=== PATIENT | male | born 1960 | race Asian ===

== ENCOUNTER 2016-12-03 07:01 | Emergency (ER) | payer OTHER ==
[~2016-12-03] VITALS: Wt 65.0 kg
--- NOTE | 2016-12-03 07:33 | ERA ---
ER Documentation Chief Complaint Date/Time DATE: 12/03/16 TIME: 07:28 Chief Complaint sent by pmd for abdominal distention and pain for the past few months. HPI 56-year-old [place] male with a history of hypertension and colon CA being treated with chemotherapy referred to the ED by Dr. Garcia for evaluation of increasing abdominal distention. He has mild, generalized, pressure and crampy- like, nonradiating pain which has been increasing since his diagnosis 06/2016. No relieving or exacerbating factors. Nausea with occasional, postprandial vomiting. Denies hematemesis or hematochezia. No chest pain or palpitations. Denies shortness of breath but does admit to mild exertional dyspnea and orthopnea. Increasing lower extremity swelling but no calf pain. Chronic left shoulder/scapular pain which is worsening over the last several weeks. No history of trauma. Denies headache or neck pain. No visual changes, focal weakness or numbness. Denies dysuria, polyuria or flank pain. No fevers or chills. ROS All systems reviewed and are negative except as per history of present illness. Medications Home Meds Reported Medications Losartan Potassium* (Losartan Potassium*) 50 Mg Tablet, 50 MG PO DAILY, TAB 12/03/16 Tamsulosin Hcl* (Tamsulosin Hcl*) 0.4 Mg Cap.er.24h, 0.4 MG PO HS, CAP 12/03/16 Atenolol* (Atenolol*) 50 Mg Tablet, 50 MG PO QAM, #30 TAB 12/03/16 Amlodipine Besylate* (Amlodipine Besylate*) 10 Mg Tablet, 10 MG PO DAILY, #30 TAB 12/03/16 Morphine Sulfate* (Ms Contin*) 60 Mg Tablet.sa, 60 MG PO Q12, TAB.SA 12/03/16 Oxycodone Hcl* (IR) (Oxycodone Hcl*) 15 Mg Tablet, 15 MG PO Q4H Y for PAIN, TAB 12/03/16 Warfarin Sodium* (Coumadin*) 1 Mg Tablet, 1 MG PO DAILY, TAB 12/03/16 Furosemide* (Furosemide*) 20 Mg Tablet, 10 MG PO QAM, #60 TAB 12/03/16 Allergies Allergies: Coded Allergies: No Known Allergy (Unverified , 12/03/16) PMhx/Soc Reviewed in chart. As per HPI. History of Surgery: No Hx Neurological Disorder: No Hx Respiratory Disorders: No Hx Cardiac Disorders: Yes (Hypertension) Hx Psychiatric Problems: No Hx Miscellaneous Medical Probl: Yes (Colon cancer) Hx Alcohol Use: No Hx Substance Use: No Hx Tobacco Use: No FmHx No diabetes, cancer or coronary artery disease Physical Exam Vitals Vital Signs Date Time Temp Pulse Resp B/P Pulse Ox O2 Delivery O2 Flow Rate FiO2 12/03/16 13:39 66 18 109/73 100 Room Air 12/03/16 10:33 83 18 120/81 99 Room Air 12/03/16 07:04 99.6 102 22 123/82 100 Physical Exam Const: Alert, ill-appearing but in mild distress due to pain. Head: Atraumatic Eyes: Normal Conjunctiva. Sclerae anicteric. Pupils equal reactive to light. ENT: Normal External Ears, Nose and Mouth. Neck: Full range of motion. Nontender. Resp: Breath sounds are equal but diminished at the bases. Otherwise clear to auscultation bilaterally. No rales rhonchi or wheezes. Cardio: Regular rate and rhythm, no murmurs Abd: Soft, distended, tense. Positive fluid wave. Mild generalized tenderness but no rebound or guarding. Skin: No petechiae or rashes Back: No midline or flank tenderness Ext: 3+ pitting edema bilaterally. No calf tenderness. Neur: Awake and alert. Cranial nerves II through XII are grossly intact. Motor and sensory equal bilaterally. No focal deficit observed. Psych: Normal Mood and Affect Result Diagram: 12/03/16 0740 12/03/16 0740 Results 24 hrs Laboratory Tests Test 12/03/16 07:40 12/03/16 09:30 Activated Partial Thromboplast Time 36.1Sec Alanine Aminotransferase (ALT/SGPT) 64IU/L Albumin 2.8g/dl Albumin/Globulin Ratio 0.75 Alkaline Phosphatase 287IU/L Anion Gap 14 Aspartate Amino Transf (AST/SGOT) 160IU/L Basophils # 0.010^3/ul Basophils % 0.7% Blood Morphology Comment Blood Urea Nitrogen 8mg/dl Calcium Level 8.0mg/dl Carbon Dioxide Level 25mmol/L Chloride Level 98mmol/L Creatinine 0.68mg/dl Direct Bilirubin 0.00mg/dl Eosinophils # 0.110^3/ul Eosinophils % 5.2% Globulin 3.70g/dl Glucose Level 93mg/dl Hematocrit 30.0% Hemoglobin 9.9g/dl INR International Normalized Ratio 1.47 Indirect Bilirubin 0.9mg/dl Lipase 138U/L Lymphocytes # 0.810^3/ul Lymphocytes % 27.8% Mean Corpuscular Hemoglobin 25.5pg Mean Corpuscular Hemoglobin Concent 33.1g/dl Mean Corpuscular Volume 77.0fl Mean Platelet Volume 8.2fl Monocytes # 0.110^3/ul Monocytes % 4.5% Neutrophils # 1.810^3/ul Neutrophils % 61.8% Nucleated Red Blood Cells # 0.010^3/ul Nucleated Red Blood Cells % 0.0/100WBC Platelet Count 01837^3/UL Potassium Level 3.2mmol/L Prothrombin Time 17.9Sec Prothrombin Time Ratio 1.4 Red Blood Count 3.9010^6/ul Red Cell Distribution Width 24.8% Sodium Level 134mmol/L Total Bilirubin 0.9mg/dl Total Protein 6.5g/dl Urine Bilirubin NEGATIVE Urine Calcium Oxalate Crystals MODERATE Urine Clarity CLEAR Urine Color LT. YELLOW Urine Glucose NEGATIVE% Urine Hemoglobin 1+ Urine Ketones NEGATIVE Urine Leukocyte Esterase NEGATIVE Urine Microscopic RBC 0-2/HPF Urine Microscopic WBC NONE SEEN/HPF Urine Nitrite NEGATIVE Urine Specific [place] <=1.005 Urine Total Protein TRACE Urine Urobilinogen 0.2 E.U./dL Urine pH 7.0 White Blood Count 2.910^3/ul Body Fluid Appearance CLEAR Body Fluid Color YELLOW Body Fluid Eosinophils % 1% Body Fluid Lymphocytes (%) 22% Body Fluid Monocytes % 67% Body Fluid Neutrophils % 10% Body Fluid RBC 1+ Body Fluid Type ASCITES Body Fluid Volume 1000.0ml Body Fluid WBC 252/cmm Current Medications Medications (Trade) Dose Ordered Sig/Krystyna Route PRN Reason Start Time Stop Time Status Last Admin Dose Admin Lidocaine (Xylocaine 1% (Mpf)) 5 ml STK-MED ONCE .ROUTE 12/03/16 10:14 12/03/16 10:15 DC Potassium Chloride (Klor-Con 20) 40 meq ONCE STAT PO 12/03/16 12:35 12/03/16 12:36 DC 12/03/16 13:25 Hydromorphone HCl (Dilaudid) 1 mg ONCE STAT IV 12/03/16 13:36 1/23/17 13:37 DC 12/03/16 13:42 PROCEDURE: CT abdomen and pelvis without contrast. CLINICAL INDICATION: Abdominal pain. Metastatic colon cancer. TECHNIQUE: CT of the abdomen and pelvis without contrast was performed on a multidetector high-resolution CT scanner. Coronal and sagittal reformatted images were obtained from the axial source images. Images were reviewed on a high-resolution PACS workstation. The total exam CTDI equals 12.54 mGy and the total exam DLP equals 770.22 mGy-cm. One or more of the following dose reduction techniques were used: - Automated exposure control. - Adjustment of the mA and/or kV according to patient size. - Use of iterative reconstruction technique. COMPARISON: None available. FINDINGS: There is subsegmental atelectasis versus scarring at both lung bases and there are trace bilateral pleural effusions, right greater than left. There are sub 4 mm pulmonary nodules scattered within both lung bases. The visualized heart is unremarkable. There are innumerable hypodense lesions scattered throughout the liver with abnormal conglomerate hypodensity involving the majority of the right hepatic lobe. The liver is enlarged measuring 23 cm in length. There is no intra or extrahepatic biliary ductal dilatation. The gallbladder is contracted containing high-density material. The spleen is enlarged measuring 13.9 cm in length. The pancreas and adrenal glands are grossly unremarkable. There are punctate nonobstructing stones at the upper pole of the right kidney and an 8 x 5 mm nonobstructing stone at the lower pole of the right kidney. There are nonobstructing stones measuring 6 mm and 2 mm at the lower pole of the left kidney. There is no hydronephrosis. There is no bowel wall thickening or evidence of obstruction. The appendix is not identified. There is no free intraperitoneal air. There is a moderate-to- large volume of ascites and there is anasarca. There is infiltration of the ventral upper and mid abdominal mesentery, which is nonspecific, but suspicious for underlying peritoneal carcinomatosis. There are enlarged upper abdominal mesenteric lymph nodes, which do not meet size criteria for adenopathy. There are atherosclerotic changes of the aorta, which is nonaneurysmal. The prostate gland, seminal vesicles, and urinary bladder are unremarkable. There is a small fat containing left inguinal hernia. There is mild to moderate multilevel degenerative spondylosis. There is a 2.0 x 1.8 cm sclerotic lesion in the right lateral aspect of the L1 vertebral body extending into the right pedicle, suspicious for osseous metastatic disease. no additional concerning osseous lesion is identified. IMPRESSION: 1. Hepatomegaly with innumerable hypodense lesions scattered throughout the liver. The right hepatic lobe is largely replaced by a conglomerate abnormal hypodensity. These findings are consistent with the patient's history of metastatic colon cancer. 2. Nonspecific infiltration of the ventral upper and mid abdominal mesentery, which is suspicious for peritoneal carcinomatosis. 3. Xapksjgi-wz-wvedn volume of ascites and anasarca. Splenomegaly, suggestive of underlying portal hypertension. 4. Trace bilateral effusions, right greater than left. Sub 4 mm pulmonary nodules in both lung bases, also suspicious for metastatic disease. Attention on follow-up is recommended. Dedicated chest CT may be performed for further evaluation and for staging purposes. 5. Hyperdense material within the gallbladder, which may reflect stones or sludge. 6. Small fat containing left inguinal hernia. 7. Vascular calcifications consistent with atherosclerosis. 8. Suspicious 2.0 x 1.8 cm sclerotic lesion in the right lateral aspect of the L1 vertebral body extending into the right pedicle, suspicious for osseous metastatic disease. Bone scan may be warranted to assess for other areas of osseous metastatic disease. 9. Bilateral nonobstructing nephrolithiasis. 10. Vascular calcifications consistent with atherosclerosis. These findings discussed with Dr. Valadez in the ED at 0833 hours on 12/03/2016. RPTAT: GG .Aubrey Valdez MD, Date Time Electronically viewed and signed by .Aubrey Valdez MD, MD on 12/03/2016 08:36 .P/ PROCEDURE: US DVT. CLINICAL INDICATION: Bilateral lower extremity pain and swelling. TECHNIQUE: Multiple longitudinal and transverse images of the bilateral lower extremity veins were obtained with craven scale and color Doppler imaging. 2D grayscale measurements with compression, color Doppler flow, and augmentation was performed. The calf veins were interrogated as well. COMPARISON: No prior studies are available for comparison. FINDINGS: The bilateral common femoral, superficial femoral and popliteal veins are normally compressible throughout. Color flow demonstrates normal filling of the vessel. Normal waveforms are visualized and there is normal response to augmentation. The calf veins are visualized and are equally unremarkable. IMPRESSION: 1. No evidence of a deep vein thrombosis involving either lower extremity. RPTAT: JJ .Kash Baldwin MD, MD Date Time Electronically viewed and signed by .Kash Baldwin MD, MD on 12/03/2016 08: 47 .N/ PROCEDURE: XR Chest. CLINICAL INDICATION: Abdominal pain TECHNIQUE: Chest AP portable. COMPARISON: No comparison available. FINDINGS: The mediastinal structures are unremarkable. The heart is normal in size and configuration. The pulmonary vascularity is normal. There are low lung volumes. There is mild bibasilar subsegmental atelectasis. The pleural spaces are unremarkable. The axial skeleton is unremarkable. IMPRESSION: Low lung volumes Mild bibasilar subsegmental atelectasis RPTAT: HGDB .Willy Boswell MD, MD Date Time Electronically viewed and signed by .Willy Boswell MD, MD on 12/03/2016 08:32 .B/ PROCEDURE: CR left shoulder CLINICAL INDICATION: Shoulder pain TECHNIQUE: 3 views performed COMPARISON: No comparison available. FINDINGS: There is normal mineralization, architecture and alignment.No fracture or osseous lesion is identified.The glenohumeral and acromioclavicular joints are unremarkable. The soft tissues are unremarkable. IMPRESSION: Unremarkable examination. RPTAT: HGDB .Willy Boswell MD, MD Date Time Electronically viewed and signed by .Willy Boswell MD, on 12/03/2016 12:24 .B/ Procedures/MDM DOCUMENTS REVIEWED: ED nurse, no prior records available REEXAMINATION/REEVALUATION: Time: 12: 45. Doing well. Vital signs stable. Feels better after the paracentesis. MEDICAL DECISION MAKIN-year-old [place] male with a history of hypertension and colon CA being treated with chemotherapy referred to the ED by Dr. Perez for evaluation of increasing abdominal distention secondary to ascites. Ultrasound guided paracentesis performed in interventional radiology of 3.4 L removed. No evidence of spontaneous bacterial peritonitis. Symptomatically improved. Vital signs stable. Patient seen in the ED by Dr. Perez who agrees with plan for discharge home and outpatient follow-up. Counseled patient and family regarding diagnosis, diagnostic results and plan for discharge. Departure Diagnosis: Primary Impression: Metastatic colon cancer to liver Additional Impressions: Ascites Qualified Code: R18.0 - Malignant ascites Abdominal pain Qualified Code: R10.13 - Epigastric pain Condition: Serious JEANNETTE VALADEZ MD Dec 03, 2016 07:33
[2016-12-03 07:58] LABS: ADD UMIC YES; URINE BILIRUBIN (Dip) NEGATIVE (NEGATIVE); URINE BLOOD (Dip) 1+ (NEGATIVE); URINE COLOR LT. YELLOW (YELLOW); URINE GLUCOSE (Dip) NEGATIVE (NEGATIVE); URINE KETONES (Dip) NEGATIVE (NEGATIVE); URINE LEUKOCYTE ESTERASE (Dip) NEGATIVE (NEGATIVE); URINE NITRITE (Dip) NEGATIVE (NEGATIVE); URINE TOTAL PROTEIN (Dip) TRACE (NEGATIVE); URINE UROBILINOGEN (Dip) 0.2 E.U./dL (0.1-1.0)
[2016-12-03 08:07] LABS: BASOPHILS % 0.7 % (0.0-2.0); EOSINOPHILS # 0.1 10^3/ul (0.0-0.5); EOSINOPHILS % 5.2 % (0.0-7.0); HEMOGLOBIN 9.9 g/dl (14.0-18.0); LYMPHOCYTES # 0.8 10^3/ul (0.8-2.9); LYMPHOCYTES % 27.8 % (15.0-51.0); MEAN CORPUSCULAR HEMOGLOBIN 25.5 pg (29.0-33.0); MEAN CORPUSCULAR HGB CONC 33.1 g/dl (32.0-37.0); MEAN PLATELET VOLUME 8.2 fl (7.4-10.4); MONOCYTE # 0.1 10^3/ul (0.3-0.9); MONOCYTES % 4.5 % (0.0-11.0); NEUTROPHIL # 1.8 10^3/ul (1.6-7.5); NEUTROPHILS % 61.8 % (39.0-77.0); PLATELET COUNT 147 10^3/UL (140-440); RED CELL DISTRIBUTION WIDTH 24.8 % (11.5-14.5); UNCORRECTED WBC 2.9 10^3/ul (4.8-10.8); WHITE BLOOD COUNT 2.9 10^3/ul (4.8-10.8)
[2016-12-03 08:11] LABS: URINE RBCS 0-2 /HPF (0)
[2016-12-03 08:13] LABS: ALBUMIN 2.8 g/dl (3.3-4.9)
[2016-12-03 08:14] LABS: INR 1.47; POTASSIUM 3.2 mmol/L (3.5-5.1); PROTIME 17.9 Sec (12.2-14.2); PT RATIO 1.4
[2016-12-03 08:15] LABS: PARTIAL THROMBOPLASTIN TIME 36.1 Sec (25.0-35.0)
[2016-12-03 08:16] LABS: ALBUMIN/GLOBULIN RATIO 0.75; BILIRUBIN,INDIRECT 0.9 mg/dl (0-1.1); BILIRUBIN,TOTAL 0.9 mg/dl (0.2-1.3); CONDITION 1; CREATININE 0.68 mg/dl (0.61-1.24); LH ANALYZER COMMENTS 1; TOTAL PROTEIN 6.5 g/dl (6.1-8.1)
--- NOTE | 2016-12-03 08:33 | RADRPT ---
PROCEDURE: XR Chest. CLINICAL INDICATION: Abdominal pain TECHNIQUE: Chest AP portable. COMPARISON: No comparison available. FINDINGS: The mediastinal structures are unremarkable. The heart is normal in size and configuration. The pu lmonary vascularity is normal. There are low lung volumes. There is mild bibasilar subsegmental at electasis. The pleural spaces are unremarkable. The axial skeleton is unremarkable. IMPRESSION: Low lung volumes Mild bibasilar subsegmental atelectasis RPTAT: HGDB .Willy Boswell MD, MD Date Time Electronically viewed and signed by .Willy Boswell MD, on 12/03/2016 08:32 .B/
--- NOTE | 2016-12-03 08:36 | RADRPT ---
PROCEDURE: CT abdomen and pelvis without contrast. CLINICAL INDICATION: Abdominal pain. Metastatic colon cancer. TECHNIQUE: CT of the abdomen and pelvis without contrast was performed on a multidetector high-res olution CT scanner. Coronal and sagittal reformatted images were obtained from the axial source imag es. Images were reviewed on a high-resolution PACS workstation. The total exam CTDI equals 12.54 mGy and the total exam DLP equals 770.22 mGy-cm. One or more of the following dose reduction techniques were used: - Automated exposure control. - Adjustment of the mA and/or kV according to patient size. - Use of iterative reconstruction technique. COMPARISON: None available. FINDINGS: There is subsegmental atelectasis versus scarring at both lung bases and there are trace bilateral p leural effusions, right greater than left. There are sub 4 mm pulmonary nodules scattered within jero th lung bases. The visualized heart is unremarkable. There are innumerable hypodense lesions scattered throughout the liver with abnormal conglomerate hy podensity involving the majority of the right hepatic lobe. The liver is enlarged measuring 23 cm i n length. There is no intra or extrahepatic biliary ductal dilatation. The gallbladder is contracted containing high-density material. The spleen is enlarged measuring 13.9 cm in length. The pancrea s and adrenal glands are grossly unremarkable. There are punctate nonobstructing stones at the upper pole of the right kidney and an 8 x 5 mm nonob structing stone at the lower pole of the right kidney. There are nonobstructing stones measuring 6 mm and 2 mm at the lower pole of the left kidney. There is no hydronephrosis. There is no bowel wall thickening or evidence of obstruction. The appendix is not identified. There is no free intraperitoneal air. There is a [id number]-qt-xqemp volume of ascites and there is anasarc a. There is infiltration of the ventral upper and mid abdominal mesentery, which is nonspecific, bu t suspicious for underlying peritoneal carcinomatosis. There are enlarged upper abdominal mesenteri c lymph nodes, which do not meet size criteria for adenopathy. There are atherosclerotic changes of the aorta, which is nonaneurysmal. The prostate gland, seminal vesicles, and urinary bladder are un remarkable. There is a small fat containing left inguinal hernia. There is mild to moderate multilevel degenerative spondylosis. There is a 2.0 x 1.8 cm sclerotic les ion in the right lateral aspect of the L1 vertebral body extending into the right pedicle, suspiciou s for osseous metastatic disease. no additional concerning osseous lesion is identified. IMPRESSION: 1. Hepatomegaly with innumerable hypodense lesions scattered throughout the liver. The right hepat ic lobe is largely replaced by a conglomerate abnormal hypodensity. These findings are consistent wi th the patient's history of metastatic colon cancer. 2. Nonspecific infiltration of the ventral upper and mid abdominal mesentery, which is suspicious f or peritoneal carcinomatosis. 3. Bfcozxzm-vg-crysl volume of ascites and anasarca. Splenomegaly, suggestive of underlying portal hypertension. 4. Trace bilateral effusions, right greater than left. Sub 4 mm pulmonary nodules in both lung bas es, also suspicious for metastatic disease. Attention on follow-up is recommended. Dedicated chest CT may be performed for further evaluation and for staging purposes. 5. Hyperdense material within the gallbladder, which may reflect stones or sludge. 6. Small fat containing left inguinal hernia. 7. Vascular calcifications consistent with atherosclerosis. 8. Suspicious 2.0 x 1.8 cm sclerotic lesion in the right lateral aspect of the L1 vertebral body ex tending into the right pedicle, suspicious for osseous metastatic disease. Bone scan may be warrant ed to assess for other areas of osseous metastatic disease. 9. Bilateral nonobstructing nephrolithiasis. 10. Vascular calcifications consistent with atherosclerosis. These findings discussed with Dr. Akbar in the ED at 0833 hours on 12/03/2016. RPTAT: GG .Aubrey Valdez MD, Date Time Electronically viewed and signed by .Aubrey Valdez MD, MD on 12/03/2016 08:36 .P/
[2016-12-03] MEDS ORDERED: FURO20TA3 PO (08:43)
[2016-12-03] MEDS ORDERED: WARF1TAB47 PO (08:43)
[2016-12-03] MEDS ORDERED: OXYC15TA PO (08:44)
[2016-12-03] MEDS ORDERED: MORP60TA37 PO (08:44)
[2016-12-03] MEDS ORDERED: AMLO-147 PO (08:45)
[2016-12-03] MEDS ORDERED: ATEN50TA PO (08:45)
[2016-12-03] MEDS ORDERED: TAMS0.4C2 PO (08:45)
[2016-12-03] MEDS ORDERED: LOSA50TA6 PO (08:45)
--- NOTE | 2016-12-03 08:47 | RADRPT ---
PROCEDURE: US DVT. CLINICAL INDICATION: Bilateral lower extremity pain and swelling. TECHNIQUE: Multiple longitudinal and transverse images of the bilateral lower extremity veins were obtained with craven scale and color Doppler imaging. 2D grayscale measurements with compression, co caren Doppler flow, and augmentation was performed. The calf veins were interrogated as well. COMPARISON: No prior studies are available for comparison. FINDINGS: The bilateral common femoral, superficial femoral and popliteal veins are normally compressible thro ughout. Color flow demonstrates normal filling of the vessel. Normal waveforms are visualized and there is normal response to augmentation. The calf veins are visualized and are equally unremarkabl e. IMPRESSION: 1. No evidence of a deep vein thrombosis involving either lower extremity. RPTAT: JJ .Kash Baldwin MD, Date Time Electronically viewed and signed by .Kash Baldwin MD, MD on 12/03/2016 08:47 .N/
--- NOTE | 2016-12-03 10:12 | RADRPT ---
PROCEDURE: Ultrasound guided paracentesis. CLINICAL INDICATION: Ascites and shortness of breath. COMPARISON: No prior studies are available for comparison. TECHNIQUE: The risks, benefits, and alternatives were explained to the patient, including but not limited to bl eeding, infection, pain, visceral or vascular damage, shock, and . The patient understood the risks and the alternatives and wished to proceed with the procedure. Informed written consent was o btained. A procedural time out was performed. The patient's name, date of , and procedure to b e performed were verified. Utilizing ultrasound guidance, optimal location for entry to the peritoneal cavity was ascertained. The overlying skin was prepped and draped in the usual sterile fashion. Approximately 10 ml of 1% Xylocaine was injected locally for pain control. Using ultrasound guidance, an 8 Yoruba catheter wa s introduced into the peritoneal cavity in the right lower quadrant without difficulty. FINDINGS: Initial images demonstrate ascites. Approximately 3.4 liters of serous fluid was aspirated and sent for laboratory analysis. The patient tolerated the procedure well without complication. IMPRESSION: 1. Successful ultrasound-guided paracentesis. RPTAT: QQ .Shahbaz Hendricks MD, Date Time Electronically viewed and signed by .Shahbaz Hendricks MD, MD on 12/03/2016 10:12 .R/
[2016-12-03] MEDS ORDERED: LIDOCAINE 1% (MPF) 5 ML VIAL ONE (10:14)
[2016-12-03 12:19] LABS: FLUID APPEARANCE CLEAR; FLUID TYPE ASCITES
[2016-12-03 12:20] LABS: FLUID WBC'S 252 /cmm
--- NOTE | 2016-12-03 12:25 | RADRPT ---
PROCEDURE: CR left shoulder CLINICAL INDICATION: Shoulder pain TECHNIQUE: 3 views performed COMPARISON: No comparison available. FINDINGS: There is normal mineralization, architecture and alignment.No fracture or osseous lesion is identifi ed.The glenohumeral and acromioclavicular joints are unremarkable. The soft tissues are unremarkable . IMPRESSION: Unremarkable examination. RPTAT: HGDB .Willy Boswell MD, MD Date Time Electronically viewed and signed by .Willy Boswell MD, on 12/03/2016 12:24 .B/
[2016-12-03] MEDS ORDERED: POTASSIUM CHLORIDE (SR) 20 MEQ TAB PO STA (12:35)
[2016-12-03 13:16] LABS: FLUID EOSINOPHIL 1 %; FLUID LYMPHOCYTES 22 %; FLUID MONOCYTES 67 %; FLUID NEUTROPHILS 10 %; FLUID RBC EST 1+
[2016-12-03] MEDS ORDERED: HYDROmorphONE 1 MG/ML SYG IV STA (13:36)
[2016-12-03 13:39] VITALS: BP 109/73; PULSE 66; RESP 18
== END 2016-12-03 13:07 | disposition home or self-care (01) ==
LOC: E/R 07:01
DX: C18.9 Malignant neoplasm of colon, unspecified (principal); R40.2252 Coma scale, best verbal response, oriented, at arrival to emergency department; C78.7 Secondary malignant neoplasm of liver and intrahepatic bile duct; I10 Essential (primary) hypertension; R18.0 Malignant ascites; R10.13 Epigastric pain; R40.2362 Coma scale, best motor response, obeys commands, at arrival to emergency department; R40.2142 Coma scale, eyes open, spontaneous, at arrival to emergency department; Z79.01 Long term (current) use of anticoagulants
CPT/HCPCS: 36415; 71010; 73030; 74176; 80053; 81001; 83690; 85025; 85610; 85730; 87070; 87102; 87116; 89050; 93965; 96374; J1170; Z7502; Z7610; 81003

== ENCOUNTER 2016-12-19 08:34 | Inpatient (IN) | payer OTHER ==
[~2016-12-19] VITALS: Ht 162.6 cm; Wt 71.0 kg
[~2016-12-19 08:34] MED LIST: AMLO-147 PO; ATEN50TA PO; FURO20TA3 PO; LOSA50TA6 PO; MORP60TA37 PO; OXYC15TA PO; TAMS0.4C2 PO; WARF1TAB47 PO
[2016-12-19] MEDS ORDERED: HYDROmorphONE 1 MG/ML SYG IV STA ×2 (08:46→10:59)
[2016-12-19] MEDS ORDERED: SOD CHLORIDE 0.9% 1,000 ML IV STA (08:46)
[2016-12-19] MEDS ORDERED: ONDANSETRON 4 MG INJ IV STA ×2 (08:46→10:59)
--- NOTE | 2016-12-19 08:56 | ERD ---
ER Documentation Chief Complaint Date/Time DATE: 12/19/16 TIME: 08:53 Chief Complaint abdominal pain,hx of colon cancer,on chemo treatments HPI This is a 56-year-old male with a known history of metastatic colon carcinoma diagnosed June [id number] currently on chemotherapy. The patient receives chemotherapy intravenously every 2 weeks. His last dose of chemotherapy was 2 days prior to arrival. The patient presents to the emergency department today requesting a paracentesis. He was recently seen 2 days ago by his marketing project coordinator oncologist Dr. Garcia and the daughter states that they were told that he will soon require a paracentesis. His last paracentesis was roughly 3 weeks ago. The patient denies any worsening of his abdominal pain but does state he has had abdominal distention. He has no chest pain or pressure that radiates to the neck arm back or jaw. He has no shortness of breath at rest or exertion. He denies any hemoptysis hematemesis or melanotic stools. He has had no fevers or shaking or chills. He denies any hemoptysis hematemesis or melanotic stools. The patient takes 1 mg of warfarin on a daily basis and has been compliant with all his medications. He takes hydrocodone for chronic pain ROS All systems reviewed and are negative except as per history of present illness. Medications Home Meds Reported Medications Losartan Potassium* (Losartan Potassium*) 50 Mg Tablet, 50 MG PO DAILY, TAB 12/03/16 Tamsulosin Hcl* (Tamsulosin Hcl*) 0.4 Mg Cap.er.24h, 0.4 MG PO HS, CAP 12/03/16 Atenolol* (Atenolol*) 50 Mg Tablet, 50 MG PO QAM, #30 TAB 12/03/16 Amlodipine Besylate* (Amlodipine Besylate*) 10 Mg Tablet, 10 MG PO DAILY, #30 TAB 12/03/16 Morphine Sulfate* (Ms Contin*) 60 Mg Tablet.sa, 60 MG PO Q12, TAB.SA 12/03/16 Oxycodone Hcl* (IR) (Oxycodone Hcl*) 15 Mg Tablet, 15 MG PO Q4H Y for PAIN, TAB 12/03/16 Warfarin Sodium* (Coumadin*) 1 Mg Tablet, 1 MG PO DAILY, TAB 12/03/16 Furosemide* (Furosemide*) 20 Mg Tablet, 10 MG PO QAM, #60 TAB 12/03/16 Allergies Allergies: Coded Allergies: No Known Allergy (Unverified , 12/19/16) PMhx/Soc History of Surgery: No Hx Neurological Disorder: No Hx Respiratory Disorders: No Hx Cardiac Disorders: Yes (Hypertension) Hx Psychiatric Problems: No Hx Miscellaneous Medical Probl: Yes (Colon cancer) Hx Alcohol Use: No Hx Substance Use: No Hx Tobacco Use: No Smoking Status: Never smoker Physical Exam Vitals Vital Signs Date Time Temp Pulse Resp B/P Pulse Ox O2 Delivery O2 Flow Rate FiO2 12/19/16 08:40 97.3 89 18 109/69 98 Physical Exam Constitutional:Well-developed. Cachectic. HEENT:Normocephalic. Atraumatic.Pupils were equal round reactive to light. Moist mucous membranes.No tonsillar exudates. Neck: No nuchal rigidity. No lymphadenopathy. No posterior cervical spine tenderness or step-offs. Respiratory: Not using accessory muscles of respiration.Lungs were clear to auscultation bilaterally. No rhonchi. No rales. No wheezing. Cardiovascular: Regular rate regular rhythm.No murmurs. No rubs were appreciated.S1, S2 normal. Distal pulses are palpable 2+ bilaterally. GI: Abdomen was soft. Tense ascites. Positive fluid thrill and no pulsatile abdominal masses or bruits. No rebound. No guarding. Bowel sounds were present and normal. Muscle skeletal: Full range of motion of both the upper and lower extremities bilaterally.Normal muscle tone.No assymetrical calf tenderness or swelling. Skin: No petechia, no purpura. No lesions on the palms or the soles of the feet. No maculopapular rash. NEURO: Patient was alert, awake, orientated x3.No facial droop. Gait observed and normal with no ataxia.Speech had regular rate and rhythm. No focal neurological deficits. Result Diagram: 12/19/16 0837 12/19/16 0837 Results 24 hrs Laboratory Tests Test 12/19/16 08:37 Activated Partial Thromboplast Time 41.9Sec Alanine Aminotransferase (ALT/SGPT) 45IU/L Albumin 2.7g/dl Albumin/Globulin Ratio 0.81 Alkaline Phosphatase 337IU/L Amylase Level 61U/L Anion Gap 11 Aspartate Amino Transf (AST/SGOT) 146IU/L Blood Morphology Comment Blood Urea Nitrogen 9mg/dl Calcium Level 8.2mg/dl Carbon Dioxide Level 27mmol/L Chloride Level 96mmol/L Creatinine 0.70mg/dl Direct Bilirubin 0.00mg/dl Globulin 3.30g/dl Glucose Level 89mg/dl Hematocrit 29.5% Hemoglobin 9.8g/dl INR International Normalized Ratio 1.96 Indirect Bilirubin 0.9mg/dl Lipase 124U/L Mean Corpuscular Hemoglobin 26.5pg Mean Corpuscular Hemoglobin Concent 33.4g/dl Mean Corpuscular Volume 79.6fl Mean Platelet Volume 8.3fl Platelet Count 46285^3/UL Potassium Level 3.3mmol/L Prothrombin Time 22.5Sec Prothrombin Time Ratio 1.8 Red Blood Count 3.7110^6/ul Red Cell Distribution Width 24.1% Sodium Level 131mmol/L Total Bilirubin 0.9mg/dl Total Protein 6.0g/dl Troponin I < 0.012ng/ml White Blood Count 2.310^3/ul Current Medications Medications (Trade) Dose Ordered Sig/Krystyna Route PRN Reason Start Time Stop Time Status Last Admin Dose Admin Sodium Chloride (NS) 1,000 ml @ 1,000 mls/hr Q1H STAT IV 12/19/16 08:46 12/19/16 09:45 DC 12/19/16 09:14 Hydromorphone HCl (Dilaudid) 1 mg ONCE STAT IV 12/19/16 08:46 12/19/16 08:49 DC 12/19/16 09:14 Ondansetron HCl (Zofran Inj) 4 mg ONCE STAT IV 12/19/16 08:46 12/19/16 08:49 DC 12/19/16 09:14 Hydromorphone HCl (Dilaudid) 1 mg ONCE STAT IV 12/19/16 10:59 12/19/16 11:00 DC 12/19/16 11:08 Ondansetron HCl (Zofran Inj) 4 mg ONCE STAT IV 12/19/16 10:59 12/19/16 11:00 DC 12/19/16 11:08 Potassium Chloride (Klor-Con 10) 10 meq ONCE ONCE PO 12/19/16 12:00 12/19/16 12:01 Procedures/MDM This patient presented to the emergency department with abdominal pain and was seen and evaluated by myself. My differential diagnosis included but was not limited to abdominal aortic aneurysm, appendicitis, pancreatitis, perforated peptic ulcer, perforated viscus, Boerhaaves syndrome or visceral pain such as diverticulitis, DKA, esophagitis, hepatitis or bowel obstruction. The patient had a recent CT scan performed on December 03, 2016 and therefore did not feel is necessary today to repeat the CT scan as the patient had tense ascites but no physical exam findings to suggest SBP or obstruction as the patient did not have a surgical abdomen or peritoneal signs The patient was placed on a campus monitor, continuous pulse oximetry, and IV access was established by nursing staff. The patient received intravenous Dilaudid and Zofran for his chronic pain due to his carcinoma. The patient has ascites but given that the patient was coagulopathic with an elevated INR, a paracentesis was not performed at this time. I spoke with the radiologist and they requested that the elevated INR be treated prior to paracentesis. After speaking with Dr. Garcia, she requested the patient received 1 unit of FFP and this was ordered by myself and consent was signed by the patient 12 Lead EKG tracing ordered and reviewed by myself showed: Normal sinus rhythm of 83 bpm and no arrhythmia. MD interval normal. QRS duration normal. No ST segment elevation No ST segment depression. No changes consistent with acute ischemia. Observation Note: Time: 4 hours Family Hx: No Hypertension Evaluation: Multiple exams showed no improvement of the patient's pain. The patient has metastatic colon carcinoma and received multiple doses of IV Dilaudid while in the emergency department. I spoke with Dr. Garcia and she is aware that the patient will be admitted to the hospital for IV analgesic control and improvement of the INR in order to have a paracentesis performed. The patient will be admitted to the hospitalist Dr. Hdez in serious condition Departure Diagnosis: Primary Impression: Chronic pain due to neoplasm Additional Impressions: Ascites of liver Coagulopathy Condition: DELLA Garcia Dec 19, 2016 08:56
--- NOTE | 2016-12-19 09:06 | RADRPT ---
PROCEDURE: Chest Radiograph. CLINICAL INDICATION: Abdominal pain TECHNIQUE: Single frontal chest radiograph. COMPARISON: Chest radiograph 12/03/2016 FINDINGS: The cardiomediastinal silhouette is within normal limits. There is mild bibasilar atelectasis. No i nfiltrate or effusion is seen. The bones are intact. IMPRESSION: 1. No evidence of acute cardiopulmonary disease. 2. Mild bibasilar atelectasis. RPTAT: KK .Ap Car MD, Date Time Electronically viewed and signed by .Ap Car MD, on 12/19/2016 09:06 .B/
[2016-12-19 09:29] LABS: HEMATOCRIT 29.5 % (42.0-52.0); HEMOGLOBIN 9.8 g/dl (14.0-18.0); MEAN CORPUSCULAR HEMOGLOBIN 26.5 pg (29.0-33.0); MEAN CORPUSCULAR HGB CONC 33.4 g/dl (32.0-37.0); MEAN CORPUSCULAR VOLUME 79.6 fl (82.0-101.0); MEAN PLATELET VOLUME 8.3 fl (7.4-10.4); PLATELET COUNT 112 10^3/UL (140-440); RED BLOOD COUNT 3.71 10^6/ul (4.70-6.10); RED CELL DISTRIBUTION WIDTH 24.1 % (11.5-14.5); UNCORRECTED WBC 2.3 10^3/ul (4.8-10.8); WHITE BLOOD COUNT 2.3 10^3/ul (4.8-10.8)
[2016-12-19 09:36] LABS: CONDITION 1; LH ANALYZER COMMENTS 1
[2016-12-19 09:39] LABS: ALBUMIN 2.7 g/dl (3.3-4.9); CHLORIDE 96 mmol/L (97-110)
[2016-12-19 09:40] LABS: POTASSIUM 3.3 mmol/L (3.5-5.1); SODIUM 131 mmol/L (135-144)
[2016-12-19 09:42] LABS: AMYLASE 61 U/L (11-123)
[2016-12-19 09:43] LABS: ALANINE AMINOTRANSFERASE 45 IU/L (13-69); ALBUMIN/GLOBULIN RATIO 0.81; ALKALINE PHOSPHATASE 337 IU/L (42-121); ANION GAP 11 (8-16); ASPARTATE AMINO TRANSFERASE 146 IU/L (15-46); BILIRUBIN,INDIRECT 0.9 mg/dl (0-1.1); BILIRUBIN,TOTAL 0.9 mg/dl (0.2-1.3); BLOOD UREA NITROGEN 9 mg/dl (7-20); CALCIUM 8.2 mg/dl (8.4-10.2); CARBON DIOXIDE 27 mmol/L (21-31); GLUCOSE 89 mg/dl (70-220)
[2016-12-19 09:49] LABS: INR 1.96; PARTIAL THROMBOPLASTIN TIME 41.9 Sec (25.0-35.0); PROTIME 22.5 Sec (12.2-14.2); PT RATIO 1.8
[2016-12-19 09:54] LABS: TROPONIN-I < 0.012 ng/ml (0.00-0.12)
[2016-12-19] MEDS ORDERED: ONDANSETRON 4 MG INJ IV PRN ×2 (12:00→16:00)
[2016-12-19] MEDS ORDERED: POTASSIUM CHLORIDE (SR) 10 MEQ TAB PO ONE (12:00)
[2016-12-19] MEDS ORDERED: ACETAMINOPHEN 325 MG TAB PO PRN (12:00)
--- NOTE | 2016-12-19 12:29 | CONS ---
Date/Time of Note Date/Time of Note DATE: 12/19/16 TIME: 12:28 Assessment/Plan Assessment/Plan Chief Complaint/Hosp Course MALIGNANT Ascites secondary to CRC COAGULOPATHY The patient has been set up for paracentesis status post fresh frozen plasma and albumin infusion. colon cancer with metastasis to the liver. CHEMO ON HOLD Essential hypertension. Continue amlodipine, atenolol, losartan, and Lasi Benign prostatic hypertrophy. Continue Flomax. Lower extremity edema. This is likely secondary to liver disease, neoplasm of the liver, and hypoalbuminemia. The patient has been placed on albumin. Also, will continue Lasix. For deep venous thrombosis prophylaxis, the patient is on Coumadin. For gastrointestinal prophylaxis, on Pepcid. Problems: Consultation Date/Type/Reason Admit Date/Time Date of Consultation: Dec 19, 2016 Type of Consultation: [facility] Reason for Consultation CRC Referring Provider: DELLA WALTERS of Present Illness This is an unfortunate 56-year-old gentleman with past medical history of metastatic colon carcinoma with mets to liver, ascites, frequent paracentesis, hypertension, BPH PT was found to have abdominal distention and present to emergency room for paracentesis. Upon arrival to emergency room, patient was found to have WBC 2.3, hemoglobin 9.8, hematocrit 29.5, platelet of 112. INR was found to be 1.96. Therefore, patient's paracentesis was placed on hold secondary to elevated INR. The patient has been started on FFP and also will be treated with albumin prior to paracentesis. At this time, the patient complains of having shortness of breath, abdominal discomfort, nausea, vomiting, difficulty with ambulation secondary to shortness of breath. No headache, dizziness, lightheadedness. No change in visual acuity , diplopia, photophobia. No heat and cold intolerance. No change in the color of stool or any other discomfort except what was stated above. PAST MEDICAL AND SURGICAL HISTORY: As above per HPI. MEDICATIONS: 1. Amlodipine 10 mg. 2. Atenolol 50 mg. 3. Lasix 20 mg. 4. Losartan 50 mg. 5. MS Contin 60 mg. 6. Oxycodone 15 mg. 7. Flomax 0.4 mg. 8. Warfarin 1 mg. ALLERGIES: NO KNOWN DRUG ALLERGIES. FAMILY HISTORY: No family history of cancer or coronary artery disease. SOCIAL HISTORY: Never smoked. No history of alcohol, no illicit drugs. He lives at home with his and his son. REVIEW OF SYSTEMS: As above per HPI, otherwise 12 review of systems was found to be negative. Social History Smoking Status: Never smoker Exam/Review of Systems Vital Signs Vitals Vital Signs Date Time Temp Pulse Resp B/P Pulse Ox O2 Delivery O2 Flow Rate FiO2 12/19/16 11:50 97.3 83 18 104/83 100 Exam GENERAL APPEARANCE: The patient is lying in bed, mild discomfort, is not using any accessory muscles for breathing. He is jaundiced and cachectic. EYES AND ENT: Conjunctivae are icteric. Oral mucosa is mildly dry. NECK: Supple. Trachea midline. No lymphadenopathy. RESPIRATORY: Effort is normal. Decreased breath sounds bilateral lower lung pruett. CARDIOVASCULAR: Normal S1, S2. Regular rhythm and rate. Positive 2 edema bilateral lower extremities. GASTROINTESTINAL: Abdomen contour with severe ascites. Bowel sounds are distant secondary to ascites. GENITOURINARY: Deferred. MUSCULOSKELETAL: Positive edema bilateral lower extremities. Full range of motion. NEUROLOGIC: He is awake, alert, oriented. Results Result Diagram: 12/19/16 0837 12/19/16 0837 Results 24 hrs Laboratory Tests Test 12/19/16 08:37 Activated Partial Thromboplast Time 41.9 H Alanine Aminotransferase (ALT/SGPT) 45 Albumin 2.7 L Albumin/Globulin Ratio 0.81 Alkaline Phosphatase 337 H Amylase Level 61 Anion Gap 11 Aspartate Amino Transf (AST/SGOT) 146 H Blood Morphology Comment Blood Urea Nitrogen 9 Calcium Level 8.2 L Carbon Dioxide Level 27 Chloride Level 96 L Creatinine 0.70 Direct Bilirubin 0.00 Globulin 3.30 H Glucose Level 89 Hematocrit 29.5 L Hemoglobin 9.8 L INR International Normalized Ratio 1.96 Indirect Bilirubin 0.9 Lipase 124 Mean Corpuscular Hemoglobin 26.5 L Mean Corpuscular Hemoglobin Concent 33.4 Mean Corpuscular Volume 79.6 L Mean Platelet Volume 8.3 Platelet Count 112 #L Potassium Level 3.3 L Prothrombin Time 22.5 #H Prothrombin Time Ratio 1.8 Red Blood Count 3.71 L Red Cell Distribution Width 24.1 H Sodium Level 131 L Total Bilirubin 0.9 Total Protein 6.0 L Troponin I < 0.012 White Blood Count 2.3 #L VERONICA GRAVES MD Dec 19, 2016 12:29
[2016-12-19 13:24] LABS: BAND NEUTROPHILS % 0.5 % (0.0-5.0); BASOPHILS % 0.5 % (0.0-2.0); EOSINOPHILS % 1.3 % (0.0-7.0); LYMPHOCYTES # 0.6 10^3/ul (0.8-2.9); LYMPHOCYTES % 24.1 % (15.0-51.0); MONOCYTE # 0.1 10^3/ul (0.3-0.9); MONOCYTES % 3.8 % (0.0-11.0); NEUTROPHIL # 1.6 10^3/ul (1.6-7.5); NEUTROPHILS % 70.3 % (39.0-77.0)
[2016-12-19 13:25] LABS: TOTAL CELLS COUNTED % 100
[2016-12-19] MEDS ORDERED: BISACODYL 10 MG SUPP PR PRN (16:00)
[2016-12-19] MEDS ORDERED: NACL 0.9% 3 ML SYG IV SCH (16:00)
[2016-12-19 16:25] VITALS: TEMP 97.7
[2016-12-19 17:00] VITALS: BP 124/79; PULSE 80; RESP 20
[2016-12-19] MEDS: morphine 2 MG INJ IV PRN (17:43)
[2016-12-19] MEDS: ALBUMIN HUMAN 25% 100 ML IV SCH (17:54)
[2016-12-19] MEDS ORDERED: FUROSEMIDE 40 MG INJ IV ONE (18:00)
--- NOTE | 2016-12-19 18:34 | HP ---
DATE OF ADMISSION: 12/19/2016 [employer] DRIVER: Dr. Perez. HISTORY OF PRESENT ILLNESS: This is an unfortunate 56-year-old gentleman with past medical history of metastatic colon carcinoma with mets to liver, ascites, frequent paracentesis, hypertension, BPH who is followed up by Dr. Perez as outpatient and was found to have abdominal distention and was asked to present to emergency room for paracentesis. Upon arrival to emergency room, patient was f ound to have WBC 2.3, hemoglobin 9.8, hematocrit 29.5, platelet of 112. INR was found to be 1.96. Therefore, patient's paracentesis was placed on hold secondary to elevated INR. The patient has bee n started on FFP and also will be treated with albumin prior to paracentesis. At this time, the pat ient complains of having shortness of breath, abdominal discomfort, nausea, vomiting, difficulty wit h ambulation secondary to shortness of breath. No headache, dizziness, lightheadedness. No change in visual acuity, diplopia, photophobia. No heat and cold intolerance. No change in the color of s tool or any other discomfort except what was stated above. PAST MEDICAL AND SURGICAL HISTORY: As above per HPI. MEDICATIONS: 1. Amlodipine 10 mg. 2. Atenolol 50 mg. 3. Lasix 20 mg. 4. Losartan 50 mg. 5. MS Contin 60 mg. 6. Oxycodone 15 mg. 7. Flomax 0.4 mg. 8. Warfarin 1 mg. ALLERGIES: NO KNOWN DRUG ALLERGIES. FAMILY HISTORY: No family history of cancer or coronary artery disease. SOCIAL HISTORY: Never smoked. No history of alcohol, no illicit drugs. He lives at home with his and his son. REVIEW OF SYSTEMS: As above per HPI, otherwise 12 review of systems was found to be negative. PHYSICAL EXAMINATION: VITAL SIGNS: Temperature 97.9, pulse 80, respiration 20, blood pressure 124/79, oxygen 100% in room air. GENERAL APPEARANCE: The patient is lying in bed, mild discomfort, is not using any accessory muscle s for breathing. He is jaundiced and cachectic. EYES AND ENT: Conjunctivae are icteric. Oral mucosa is mildly dry. NECK: Supple. Trachea midline. No lymphadenopathy. RESPIRATORY: Effort is normal. Decreased breath sounds bilateral lower lung pruett. CARDIOVASCULAR: Normal S1, S2. Regular rhythm and rate. Positive 2 edema bilateral lower extremit ies. GASTROINTESTINAL: Abdomen contour with severe ascites. Bowel sounds are distant secondary to ascit es. GENITOURINARY: Deferred. MUSCULOSKELETAL: Positive edema bilateral lower extremities. Full range of motion. NEUROLOGIC: He is awake, alert, oriented. LABORATORY WORK AND IMAGING: PT 22.5, INR 1.96. Sodium 131, potassium 3.3, chloride 96, bicarbonat e 27, anion gap 11, BUN 9, creatinine 0.70, glucose 89. LFTs with AST 146, ALT 45, alkaline phospha tase 337. Albumin 2.7. WBC 2.3, hemoglobin 9.8, hematocrit 29.7, platelets of 112. ASSESSMENT AND PLAN: 1. Ascites secondary to metastasis. The patient has been set up for paracentesis status post fresh frozen plasma and albumin infusion. 2. History of colon cancer with metastasis to the liver. The patient is followed Dr. Perez as outpatient. 3. Essential hypertension. Continue amlodipine, atenolol, losartan, and Lasix. 4. Benign prostatic hypertrophy. Continue Flomax. 5. Lower extremity edema. This is likely secondary to liver disease, neoplasm of the liver, and hy poalbuminemia. The patient has been placed on albumin. Also, will continue Lasix. 6. For deep venous thrombosis prophylaxis, the patient is on Coumadin. 7. For gastrointestinal prophylaxis, on Pepcid. 8. We will continue to monitor patient closely. Further recommendations, management, and treatment as per clinical course. Total amount of time was spent for evaluation of the patient and admission workup 40 minutes. Dictated By: TIFFANY BROWN/MIRIAM Conf#: [id number] DID#: [id number]
[2016-12-19 18:45] VITALS: Ht 162.6 cm; Wt 71.0 kg
[2016-12-19 20:08] VITALS: BP 133/79; RESP 20
[2016-12-19] MEDS: FAMOTIDINE 20 MG TAB PO SCH (21:34)
[2016-12-19] MEDS: TAMSULOSIN (SR) 0.4 MG CAP PO SCH (21:34)
[2016-12-19] MEDS: morphine (ER) 30 MG TAB PO SCH (21:34)
[2016-12-19 22:45] LABS: ADD UMIC NO; URINE BILIRUBIN (Dip) NEGATIVE (NEGATIVE); URINE BLOOD (Dip) NEGATIVE (NEGATIVE); URINE COLOR LT. YELLOW (YELLOW); URINE GLUCOSE (Dip) NEGATIVE (NEGATIVE); URINE KETONES (Dip) NEGATIVE (NEGATIVE); URINE LEUKOCYTE ESTERASE (Dip) NEGATIVE (NEGATIVE); URINE NITRITE (Dip) NEGATIVE (NEGATIVE); URINE TOTAL PROTEIN (Dip) NEGATIVE (NEGATIVE); URINE UROBILINOGEN (Dip) 0.2 E.U./dL (0.1-1.0)
[2016-12-20] MEDS: ALBUMIN HUMAN 25% 100 ML IV SCH ×2 (00:30→10:30)
[2016-12-20 07:05] LABS: HEMATOCRIT 21.8 % (42.0-52.0); HEMOGLOBIN 7.2 g/dl (14.0-18.0); MEAN CORPUSCULAR HEMOGLOBIN 26.5 pg (29.0-33.0); MEAN CORPUSCULAR HGB CONC 33.1 g/dl (32.0-37.0); MEAN CORPUSCULAR VOLUME 80.2 fl (82.0-101.0); MEAN PLATELET VOLUME 8.2 fl (7.4-10.4); PLATELET COUNT 85 10^3/UL (140-440); RED BLOOD COUNT 2.72 10^6/ul (4.70-6.10); RED CELL DISTRIBUTION WIDTH 24.2 % (11.5-14.5)
[2016-12-20 07:20] LABS: CONDITION 1; LH ANALYZER COMMENTS 1
[2016-12-20 07:26] LABS: ALBUMIN 2.7 g/dl (3.3-4.9); POTASSIUM 3.2 mmol/L (3.5-5.1)
[2016-12-20 07:28] LABS: BILIRUBIN,INDIRECT 0.7 mg/dl (0-1.1); BILIRUBIN,TOTAL 0.7 mg/dl (0.2-1.3); CREATININE 0.64 mg/dl (0.61-1.24)
[2016-12-20 07:29] LABS: ALBUMIN/GLOBULIN RATIO 1.03; TOTAL PROTEIN 5.3 g/dl (6.1-8.1)
[2016-12-20 09:23] VITALS: BP 119/73; RESP 19
[2016-12-20] MEDS: FAMOTIDINE 20 MG TAB PO SCH ×2 (09:24→21:11)
[2016-12-20] MEDS: morphine (ER) 30 MG TAB PO SCH ×2 (09:24→21:11)
[2016-12-20] MEDS: LOSARTAN 50 MG TAB PO SCH (09:26)
[2016-12-20 10:53] LABS: LYMPHOCYTES # 0.9 10^3/ul (0.8-2.9); MONOCYTE # 0.1 10^3/ul (0.3-0.9); NEUTROPHIL # 0.9 10^3/ul (1.6-7.5)
--- NOTE | 2016-12-20 12:01 | CONS ---
Date/Time of Note Date/Time of Note DATE: 12/20/16 TIME: 12:01 Assessment/Plan Assessment/Plan Chief Complaint/Hosp Course MALIGNANT Ascites secondary to CRC COAGULOPATHY The patient has been set up for paracentesis status post fresh frozen plasma and albumin infusion. colon cancer with metastasis to the liver. CHEMO ON HOLD ANEMIA PRBC Essential hypertension. Continue amlodipine, atenolol, losartan, and Lasi Benign prostatic hypertrophy. Continue Flomax. Lower extremity edema. This is likely secondary to liver disease, neoplasm of the liver, and hypoalbuminemia. The patient has been placed on albumin. Also, will continue Lasix. For deep venous thrombosis prophylaxis, the patient is on Coumadin. For gastrointestinal prophylaxis, on Pepcid. Problems: Consultation Date/Type/Reason Admit Date/Time Dec 19, 2016 at 16:46 Initial Consult Date 12/19/16 [facility] Referring Provider: DELLA WALTERS 24 HR Interval Summary Free Text/Dictation INR-1.8 PARACENTESIS- TOMORROW Exam/Review of Systems Vital Signs Vitals Vital Signs Date Time Temp Pulse Resp B/P Pulse Ox O2 Delivery O2 Flow Rate FiO2 12/20/16 09:23 98.0 91 19 119/73 98 12/19/16 17:00 Room Air Intake and Output 12/19/16 12/19/16 12/20/16 15:00 23:00 07:00 Intake Total 400 ml Output Total 1380 ml Balance -980 ml Exam HEENT: normal RESPIRATORY: Effort is normal. Decreased breath sounds bilateral lower lung pruett. CARDIOVASCULAR: Normal S1, S2. Regular rhythm and rate. Positive 2 edema bilateral lower extremities. GASTROINTESTINAL: Abdomen contour with severe ascites. Bowel sounds are distant secondary to ascites. MUSCULOSKELETAL: Positive edema bilateral lower extremities. Full range of motion. NEUROLOGIC: He is awake, alert, oriented. Results Result Diagram: 12/20/16 0635 12/20/16 0635 Results 24 hrs Laboratory Tests Test 12/19/16 22:00 12/20/16 06:35 Urine Bilirubin NEGATIVE Urine Clarity CLEAR Urine Color LT. YELLOW Urine Glucose NEGATIVE Urine Hemoglobin NEGATIVE Urine Ketones NEGATIVE Urine Leukocyte Esterase NEGATIVE Urine Nitrite NEGATIVE Urine Specific [place] 1.010 Urine Total Protein NEGATIVE Urine Urobilinogen 0.2 E.U./dL Urine pH 6.0 Alanine Aminotransferase (ALT/SGPT) 34 Albumin 2.7 L Albumin/Globulin Ratio 1.03 Alkaline Phosphatase 214 H Anion Gap 14 Aspartate Amino Transf (AST/SGOT) 86 H Band Neutrophils % 3.0 Basophils # Basophils % Blood Morphology Comment Blood Urea Nitrogen 7 Calcium Level 8.0 L Carbon Dioxide Level 27 Chloride Level 98 Creatinine 0.64 Differential Comment MANUAL DIFF Direct Bilirubin 0.00 Eosinophils # 0.0 Eosinophils % 1.0 Globulin 2.60 Glucose Level 86 Hematocrit 21.8 #L Hemoglobin 7.2 #L Indirect Bilirubin 0.7 Lymphocytes # 0.9 Lymphocytes % 46.0 Mean Corpuscular Hemoglobin 26.5 L Mean Corpuscular Hemoglobin Concent 33.1 Mean Corpuscular Volume 80.2 L Mean Platelet Volume 8.2 Monocytes # 0.1 L Monocytes % 4.0 Neutrophils # 0.9 L Neutrophils % 46.0 Nucleated Red Blood Cells # Nucleated Red Blood Cells % Platelet Count 85 #L Potassium Level 3.2 L Red Blood Count 2.72 #L Red Cell Distribution Width 24.2 H Sodium Level 136 Total Bilirubin 0.7 Total Protein 5.3 L White Blood Count 2.0 L Medications Medications Current Medications Ondansetron HCl (Zofran Inj) 4 mg Q6H PRN IV NAUSEA AND/OR VOMITING; Start 12/19 at 16:00 Acetaminophen (Tylenol Tab) 650 mg Q6H PRN PO PAIN LEVEL 1-3 OR FEVER; Start at 16:00 Acetaminophen/ Hydrocodone Bitart ([place] (5/325)) 1 tab Q6H PRN PO MODERATE PAIN LEVEL 4-6; Start 12/19/16 at 16:00 Morphine Sulfate (morphine) 2 mg Q4H PRN IV SEVERE PAIN LEVEL 7-10 Last administered on 12/19/16 17:43; Admin Dose 2 MG; Start 12/19/16 at 16:00 Docusate Sodium (Colace) 100 mg Q12H PRN PO CONSTIPATION; Start 12/19/16 at 16: 00 Bisacodyl (Dulcolax Supp) 10 mg DAILY PRN [place] CONSTIPATION; Start 12/19/16 at 16: 00 Famotidine (Pepcid) 20 mg Q12 PO Last administered on 12/20/16 09:24; Admin Dose 20 MG; Start 12/19/16 at 21:00 Losartan Potassium (Cozaar) 50 mg DAILY PO Last administered on 12/20/16 09:26 ; Admin Dose 50 MG; Start 12/20/16 at 09:00 Morphine Sulfate (Ms Contin (Er)) 60 mg Q12 PO Last administered on 12/20/16 09 :24; Admin Dose 60 MG; Start 12/19/16 at 21:00 Tamsulosin HCl (Flomax) 0.4 mg HS PO Last administered on 12/19/16 21:34; Admin Dose 0.4 MG; Start 12/19/16 at 21:00 Warfarin Sodium (Coumadin) 1 mg DAILY@17 PO ; Start 12/20/16 at 17:00 VERONICA GRAVES MD Dec 20, 2016 12:01
[2016-12-20] MEDS: morphine 2 MG INJ IV PRN ×2 (12:21→21:10)
--- NOTE | 2016-12-20 12:33 | PN ---
Date/Time of Note Date/Time of Note DATE: 12/20/16 TIME: 12:28 Assessment/Plan VTE Prophylaxis VTE Prophylaxis Intervention: other (pt is on coumadin) Lines/Catheters IV [facility] Saline Lock Urinary Cath still in place: No Assessment/Plan Assessment/Plan 1. Ascites secondary to metastasis. The patient has been set up for paracentesis status post fresh frozen plasma and albumin infusion. 2. History of colon cancer with metastasis to the liver. followed by Dr. Perez as outpatient. 3. Essential hypertension. Continue amlodipine, atenolol, losartan, and Lasix. 4. Benign prostatic hypertrophy. Continue Flomax. 5. Lower extremity edema. This is likely secondary to liver disease, neoplasm of the liver, and hypoalbuminemia. The patient has been placed on albumin. Also, will continue Lasix. 6. For deep venous thrombosis prophylaxis, the patient is on Coumadin. 7. For gastrointestinal prophylaxis, on Pepcid. 8. We will continue to monitor patient closely. Further recommendations, management, and treatment as per clinical course. Plan is to hold Segundo, pt received FFP yesterday- PT, INR stat, will ask radiology to do Paracentesis Total amount of time was spent for follow up evaluation and management plan is > 45 minutes. Subjective 24 Hr Interval Summary Free Text/Dictation INR was 1.8, paracentesis was not done yet, H/H low Exam/Review of Systems Vital Signs Vitals Vital Signs Date Time Temp Pulse Resp B/P Pulse Ox O2 Delivery O2 Flow Rate FiO2 12/20/16 09:23 98.0 91 19 119/73 98 12/19/16 17:00 Room Air Intake and Output 12/19/16 12/19/16 12/20/16 15:00 23:00 07:00 Intake Total 400 ml Output Total 1380 ml Balance -980 ml Exam HEENT: normal RESPIRATORY: Effort is normal. Decreased breath sounds bilateral lower lung pruett. CARDIOVASCULAR: Normal S1, S2. Regular rhythm and rate. Positive 2 edema bilateral lower extremities. GASTROINTESTINAL: Abdomen contour with severe ascites. Bowel sounds are distant secondary to ascites. MUSCULOSKELETAL: Positive edema bilateral lower extremities. Full range of motion. NEUROLOGIC: He is awake, alert, oriented. Results Result Diagram: 12/20/16 0635 12/20/16 0635 Results 24 hrs Laboratory Tests Test 12/19/16 22:00 2/9/17 06:35 Urine Bilirubin NEGATIVE Urine Clarity CLEAR Urine Color LT. YELLOW Urine Glucose NEGATIVE Urine Hemoglobin NEGATIVE Urine Ketones NEGATIVE Urine Leukocyte Esterase NEGATIVE Urine Nitrite NEGATIVE Urine Specific [place] 1.010 Urine Total Protein NEGATIVE Urine Urobilinogen 0.2 E.U./dL Urine pH 6.0 Alanine Aminotransferase (ALT/SGPT) 34 Albumin 2.7 L Albumin/Globulin Ratio 1.03 Alkaline Phosphatase 214 H Anion Gap 14 Aspartate Amino Transf (AST/SGOT) 86 H Band Neutrophils % 3.0 Basophils # Basophils % Blood Morphology Comment Blood Urea Nitrogen 7 Calcium Level 8.0 L Carbon Dioxide Level 27 Chloride Level 98 Creatinine 0.64 Differential Comment MANUAL DIFF Direct Bilirubin 0.00 Eosinophils # 0.0 Eosinophils % 1.0 Globulin 2.60 Glucose Level 86 Hematocrit 21.8 #L Hemoglobin 7.2 #L Indirect Bilirubin 0.7 Lymphocytes # 0.9 Lymphocytes % 46.0 Mean Corpuscular Hemoglobin 26.5 L Mean Corpuscular Hemoglobin Concent 33.1 Mean Corpuscular Volume 80.2 L Mean Platelet Volume 8.2 Monocytes # 0.1 L Monocytes % 4.0 Neutrophils # 0.9 L Neutrophils % 46.0 Nucleated Red Blood Cells # Nucleated Red Blood Cells % Platelet Count 85 #L Potassium Level 3.2 L Red Blood Count 2.72 #L Red Cell Distribution Width 24.2 H Sodium Level 136 Total Bilirubin 0.7 Total Protein 5.3 L White Blood Count 2.0 L Medications Medications Current Medications Ondansetron HCl (Zofran Inj) 4 mg Q6H PRN IV NAUSEA AND/OR VOMITING; Start 12/19 at 16:00 Acetaminophen (Tylenol Tab) 650 mg Q6H PRN PO PAIN LEVEL 1-3 OR FEVER; Start at 16:00 Acetaminophen/ Hydrocodone Bitart ([place] (5/325)) 1 tab Q6H PRN PO MODERATE PAIN LEVEL 4-6; Start 12/19/16 at 16:00 Morphine Sulfate (morphine) 2 mg Q4H PRN IV SEVERE PAIN LEVEL 7-10 Last administered on 12/20/16t 12:21; Admin Dose 2 MG; Start 12/19/16 at 16:00 Docusate Sodium (Colace) 100 mg Q12H PRN PO CONSTIPATION; Start 12/19/16 at 16: 00 Bisacodyl (Dulcolax Supp) 10 mg DAILY PRN [place] CONSTIPATION; Start 12/19/16 at 16: 00 Famotidine (Pepcid) 20 mg Q12 PO Last administered on 12/20/16 09:24; Admin Dose 20 MG; Start 12/19/16 at 21:00 Losartan Potassium (Cozaar) 50 mg DAILY PO Last administered on 12/20/16 09:26 ; Admin Dose 50 MG; Start 12/20/16 at 09:00 Morphine Sulfate (Ms Contin (Er)) 60 mg Q12 PO Last administered on 12/20/16 09 :24; Admin Dose 60 MG; Start 12/19/16 at 21:00 Tamsulosin HCl (Flomax) 0.4 mg HS PO Last administered on 12/19/16 21:34; Admin Dose 0.4 MG; Start 12/19/16 at 21:00 Warfarin Sodium (Coumadin) 1 mg DAILY@17 PO ; Start 12/20/16 at 17:00 MONAE CHAMBERS MD Dec 20, 2016 12:33
[2016-12-20] MEDS ORDERED: PHYTONADIONE 10 MG/ML INJ SC ONE (13:00)
[2016-12-20 13:27] LABS: INR 1.88; PROTIME 21.8 Sec (12.2-14.2); PT RATIO 1.7
[2016-12-20 13:28] LABS: PARTIAL THROMBOPLASTIN TIME 44.6 Sec (25.0-35.0)
[2016-12-20] MEDS ORDERED: FUROSEMIDE 20 MG INJ IV ONE (16:30)
[2016-12-20] MEDS ORDERED: WARFARIN 1 MG TAB PO SCH (17:00)
[2016-12-20] MEDS: FILGRASTIM 300 MCG INJ SC SCH (19:20)
[2016-12-20 21:06] VITALS: BP 128/82; PULSE 86; RESP 17
[2016-12-20] MEDS: TAMSULOSIN (SR) 0.4 MG CAP PO SCH (21:10)
[2016-12-20 21:48] VITALS: BP 141/71; RESP 20
[2016-12-20 22:10] VITALS: BP 125/83; PULSE 88; RESP 17
[2016-12-21] VITALS (13 sets, daily range): BP systolic 103–135; BP diastolic 67–87; PULSE 79–90; RESP 16–21
[2016-12-21] MEDS: ACETAMINOPHEN 325 MG TAB PO PRN (00:21)
[2016-12-21 05:16] LABS: INR 1.38; PT RATIO 1.3
[2016-12-21 05:17] LABS: PARTIAL THROMBOPLASTIN TIME 37.2 Sec (25.0-35.0)
[2016-12-21 06:32] LABS: ADD SCAN DIFF NO
[2016-12-21 06:41] LABS: ABNORMAL IP MESSAGE 1; BASOPHILS % 0.2 % (0.0-2.0); EOSINOPHILS % 0.8 % (0.0-7.0); HEMATOCRIT 25.3 % (42.0-52.0); LYMPHOCYTES # 0.8 10^3/ul (0.8-2.9); LYMPHOCYTES % 14.8 % (15.0-51.0); MEAN CORPUSCULAR HEMOGLOBIN 26.9 pg (29.0-33.0); MEAN CORPUSCULAR HGB CONC 31.6 g/dl (32.0-37.0); MEAN CORPUSCULAR VOLUME 85.2 fl (82.0-101.0); MEAN PLATELET VOLUME 10.4 fl (7.4-10.4); MONOCYTE # 0.2 10^3/ul (0.3-0.9); MONOCYTES % 4.2 % (0.0-11.0); NEUTROPHIL # 4.1 10^3/ul (1.6-7.5); NEUTROPHILS % 79.4 % (39.0-77.0); PLATELET COUNT 96 10^3/UL (140-415); RED BLOOD COUNT 2.97 10^6/ul (4.70-6.10); RED CELL DISTRIBUTION WIDTH 20.5 % (11.5-14.5); WHITE BLOOD COUNT 5.2 10^3/ul (4.8-10.8)
[2016-12-21] MEDS: morphine 2 MG INJ IV PRN (06:41)
[2016-12-21 06:57] LABS: ALBUMIN 2.7 g/dl (3.3-4.9)
[2016-12-21 07:00] LABS: ALBUMIN/GLOBULIN RATIO 1.12; BILIRUBIN,INDIRECT 1.1 mg/dl (0-1.1); BILIRUBIN,TOTAL 1.1 mg/dl (0.2-1.3); CREATININE 0.66 mg/dl (0.61-1.24); TOTAL PROTEIN 5.1 g/dl (6.1-8.1)
[2016-12-21 07:01] LABS: CALCIUM 7.9 mg/dl (8.4-10.2)
[2016-12-21 07:17] LABS: POTASSIUM 2.6 mmol/L (3.5-5.1)
[2016-12-21] MEDS ORDERED: LIDOCAINE 1% (MPF) 5 ML VIAL ONE (08:38)
[2016-12-21] MEDS ORDERED: POTASSIUM CHLORIDE 20 MEQ in SOD CHLORIDE 0.9% 100 ML IVPB ONE (09:00)
[2016-12-21] MEDS: FAMOTIDINE 20 MG TAB PO SCH ×2 (10:01→20:32)
[2016-12-21] MEDS: LOSARTAN 50 MG TAB PO SCH (10:01)
[2016-12-21] MEDS: morphine (ER) 30 MG TAB PO SCH ×2 (10:02→20:32)
--- NOTE | 2016-12-21 10:27 | RADRPT ---
PROCEDURE: Ultrasound guided paracentesis CLINICAL INDICATION: Ascites TECHNIQUE: The risks benefits and alternatives of the procedure were explained to the patient. In formed written consent was obtained. A time out was performed. The patient understood the risks be nefits and alternatives and wished to proceed with the procedure. COMPARISON: 12/03/2016. FINDINGS: A time out was performed. The overlying skin of the right lower quadrant of the abdomen was prepped and draped in the usual sterile fashion. Approximately 10 cc of Xylocaine was injected locally for pain control. Utilizing ultrasound guidance, a skinny 5-[place] Yueh catheter was placed into the p eritoneal cavity without difficulty. The patient tolerated the procedure well without complication. Approximately 5000 cc of clear yellow fluid was obtained. The fluid was not sent to the lab for f urther analysis. IMPRESSION: 1. Successful ultrasound-guided paracentesis. RPTAT: QQ .Kash Baldwin MD, Date Time Electronically viewed and signed by .Kash Baldwin MD, MD on 12/21/2016 10:26 .N/
--- NOTE | 2016-12-21 10:56 | PN ---
Date/Time of Note Date/Time of Note DATE: 12/21/16 TIME: 10:55 Assessment/Plan VTE Prophylaxis VTE Prophylaxis Intervention: other (coumadin ) Lines/Catheters IV [facility] Type (from [facility] Saline Lock Urinary Cath still in place: No Assessment/Plan Assessment/Plan 1. Ascites secondary to metastasis s/p paracentesis today 2. History of colon cancer with metastasis to the liver. followed by Dr. Perez as outpatient. 3. Essential hypertension. Continue amlodipine, atenolol, losartan, and Lasix. 4. Benign prostatic hypertrophy. Continue Flomax. 5. Lower extremity edema. This is likely secondary to liver disease, neoplasm of the liver, and hypoalbuminemia. The patient has been placed on albumin. Also, will continue Lasix. 6. For deep venous thrombosis prophylaxis, the patient is on Coumadin. 7. For gastrointestinal prophylaxis, on Pepcid. 8. Anemia - s/p 1 U PRBC yesterday, plan for another PRBC today Plan for paracentesis, resume coumadin toady ,1 U PRBC today Total amount of time was spent for follow up evaluation and management plan is > 45 minutes. Subjective 24 Hr Interval Summary Free Text/Dictation s/p1 UPRBC, s/p 2 U FFp, vitamin K given Exam/Review of Systems Vital Signs Vitals Vital Signs Date Time Temp Pulse Resp B/P Pulse Ox O2 Delivery O2 Flow Rate FiO2 12/21/16 09:13 98.6 86 18 116/72 97 Room Air Intake and Output 12/20/16 12/20/16 12/21/16 15:00 23:00 07:00 Intake Total 1170 ml 977 ml Output Total 960 ml 700 ml Balance 210 ml 277 ml Exam HEENT: normal RESPIRATORY: Effort is normal. Decreased breath sounds bilateral lower lung pruett. CARDIOVASCULAR: Normal S1, S2. Regular rhythm and rate. Positive 2 edema bilateral lower extremities. GASTROINTESTINAL: Abdomen contour with severe ascites. Bowel sounds are distant secondary to ascites. MUSCULOSKELETAL: Positive edema bilateral lower extremities. Full range of motion. NEUROLOGIC: He is awake, alert, oriented. Results Result Diagram: 12/21/16 0435 12/21/16 0435 Results 24 hrs Laboratory Tests Test 12/20/16 12:42 12/21/16 04:35 Activated Partial Thromboplast Time 44.6 H 37.2 H INR International Normalized Ratio 1.88 1.38 Prothrombin Time 21.8 H 17.0 #H Prothrombin Time Ratio 1.7 1.3 Alanine Aminotransferase (ALT/SGPT) 34 Albumin 2.7 L Albumin/Globulin Ratio 1.12 Alkaline Phosphatase 174 H Anion Gap 13 Aspartate Amino Transf (AST/SGOT) 69 H Basophils # 0.0 Basophils % 0.2 Blood Urea Nitrogen 6 L Calcium Level 7.9 L Carbon Dioxide Level 28 Chloride Level 99 Creatinine 0.66 Direct Bilirubin 0.00 Eosinophils # 0.0 Eosinophils % 0.8 Globulin 2.40 Glucose Level 85 Hematocrit 25.3 L Hemoglobin 8.0 L Indirect Bilirubin 1.1 Lymphocytes # 0.8 Lymphocytes % 14.8 L Mean Corpuscular Hemoglobin 26.9 L Mean Corpuscular Hemoglobin Concent 31.6 L Mean Corpuscular Volume 85.2 Mean Platelet Volume 10.4 # Monocytes # 0.2 L Monocytes % 4.2 Neutrophils # 4.1 Neutrophils % 79.4 H Nucleated Red Blood Cells # 0.0 Nucleated Red Blood Cells % 0.0 Platelet Count 96 L Potassium Level 2.6 *L Red Blood Count 2.97 L Red Cell Distribution Width 20.5 H Sodium Level 137 Total Bilirubin 1.1 Total Protein 5.1 L White Blood Count 5.2 # Medications Medications Current Medications Ondansetron HCl (Zofran Inj) 4 mg Q6H PRN IV NAUSEA AND/OR VOMITING; Start 12/19 at 16:00 Acetaminophen (Tylenol Tab) 650 mg Q6H PRN PO PAIN LEVEL 1-3 OR FEVER Last administered on 12/21/16 00:21; Admin Dose 650 MG; Start 12/19/16 at 16:00 Acetaminophen/ Hydrocodone Bitart ([place] (5/325)) 1 tab Q6H PRN PO MODERATE PAIN LEVEL 4-6; Start 12/19/16 at 16:00 Morphine Sulfate (morphine) 2 mg Q4H PRN IV SEVERE PAIN LEVEL 7-10 Last administered on 12/21/16 06:41; Admin Dose 2 MG; Start 12/19/16 at 16:00 Docusate Sodium (Colace) 100 mg Q12H PRN PO CONSTIPATION; Start 12/19/16 at 16: 00 Bisacodyl (Dulcolax Supp) 10 mg DAILY PRN [place] CONSTIPATION; Start 2/8/17 at 16: 00 Famotidine (Pepcid) 20 mg Q12 PO Last administered on 12/21/16 10:01; Admin Dose 20 MG; Start 12/19/16 at 21:00 Losartan Potassium (Cozaar) 50 mg DAILY PO Last administered on 12/21/16 10:01 ; Admin Dose 50 MG; Start 12/20/16 at 09:00 Morphine Sulfate (Ms Contin (Er)) 60 mg Q12 PO Last administered on 12/21/16 10:02; Admin Dose 60 MG; Start 12/19/16 at 21:00 Tamsulosin HCl (Flomax) 0.4 mg HS PO Last administered on 12/20/16 21:10; Admin Dose 0.4 MG; Start 12/19/16 at 21:00 Warfarin Sodium (Coumadin) 1 mg DAILY@17 PO ; Start 12/20/16 at 17:00; Status Future Hold Filgrastim 300 mcg 300 mcg DAILY@17 SC Last administered on 12/20/16 19:20; Admin Dose 300 MCG; Start 12/20/16 at 17:00 Potassium Chloride 20 meq/ Sodium Chloride 110 ml @ 55 mls/hr ONCE ONCE IVPB Last administered on 12/21/16 10:01; Admin Dose 55 MLS/HR; Start 12/21/16 at 09 :00; Stop 12/21/16 at 10:59 Albumin Human (Albumin Human 25%) 100 ml @ 100 mls/hr ONCE ONCE IV ; Start 08/27 at 12:00; Stop 12/21/16 at 12:59 MONAE CHAMBERS MD Dec 21, 2016 10:56
[2016-12-21] MEDS ORDERED: ALBUMIN HUMAN 25% 100 ML IV ONE (12:00)
--- NOTE | 2016-12-21 13:58 | CONS ---
Date/Time of Note Date/Time of Note DATE: 12/21/16 TIME: 13:58 Assessment/Plan Assessment/Plan Chief Complaint/Hosp Course MALIGNANT Ascites secondary to CRC COAGULOPATHY POST paracentesis status post fresh frozen plasma and albumin infusion. WILL REPEAT PARACENTESIS D/W DR CHAMBERS colon cancer with metastasis to the liver. CHEMO ON HOLD ANEMIA POST PRBC Essential hypertension. Continue amlodipine, atenolol, losartan, and Lasi Benign prostatic hypertrophy. Continue Flomax. Lower extremity edema. This is likely secondary to liver disease, neoplasm of the liver, and hypoalbuminemia. The patient has been placed on albumin. Also, will continue Lasix. For deep venous thrombosis prophylaxis, the patient is on Coumadin. For gastrointestinal prophylaxis, on Pepcid. Problems: Consultation Date/Type/Reason Admit Date/Time Dec 19, 2016 at 16:46 Initial Consult Date 12/19/16 [facility] Referring Provider: DELLA WALTERS 24 HR Interval Summary Free Text/Dictation s/p1 UPRBC, s/p 2 U FFp, vitamin K given Exam/Review of Systems Vital Signs Vitals Vital Signs Date Time Temp Pulse Resp B/P Pulse Ox O2 Delivery O2 Flow Rate FiO2 12/21/16 09:13 98.6 86 18 116/72 97 Room Air Intake and Output 12/20/16 12/20/16 12/21/16 15:00 23:00 07:00 Intake Total 1170 ml 977 ml Output Total 960 ml 700 ml Balance 210 ml 277 ml Exam HEENT: normal RESPIRATORY: Effort is normal. Decreased breath sounds bilateral lower lung pruett. CARDIOVASCULAR: Normal S1, S2. Regular rhythm and rate. Positive 2 edema bilateral lower extremities. GASTROINTESTINAL: Abdomen contour with MODERATE ascites. Bowel sounds are distant secondary to ascites. MUSCULOSKELETAL: Positive edema bilateral lower extremities. Full range of motion. NEUROLOGIC: He is awake, alert, oriented. Results Result Diagram: 12/21/16 0435 12/21/16 0435 Results 24 hrs Laboratory Tests Test 12/21/16 04:35 Activated Partial Thromboplast Time 37.2 H Alanine Aminotransferase (ALT/SGPT) 34 Albumin 2.7 L Albumin/Globulin Ratio 1.12 Alkaline Phosphatase 174 H Anion Gap 13 Aspartate Amino Transf (AST/SGOT) 69 H Basophils # 0.0 Basophils % 0.2 Blood Urea Nitrogen 6 L Calcium Level 7.9 L Carbon Dioxide Level 28 Chloride Level 99 Creatinine 0.66 Direct Bilirubin 0.00 Eosinophils # 0.0 Eosinophils % 0.8 Globulin 2.40 Glucose Level 85 Hematocrit 25.3 L Hemoglobin 8.0 L INR International Normalized Ratio 1.38 Indirect Bilirubin 1.1 Lymphocytes # 0.8 Lymphocytes % 14.8 L Mean Corpuscular Hemoglobin 26.9 L Mean Corpuscular Hemoglobin Concent 31.6 L Mean Corpuscular Volume 85.2 Mean Platelet Volume 10.4 # Monocytes # 0.2 L Monocytes % 4.2 Neutrophils # 4.1 Neutrophils % 79.4 H Nucleated Red Blood Cells # 0.0 Nucleated Red Blood Cells % 0.0 Platelet Count 96 L Potassium Level 2.6 *L Prothrombin Time 17.0 #H Prothrombin Time Ratio 1.3 Red Blood Count 2.97 L Red Cell Distribution Width 20.5 H Sodium Level 137 Total Bilirubin 1.1 Total Protein 5.1 L White Blood Count 5.2 # Medications Medications Current Medications Ondansetron HCl (Zofran Inj) 4 mg Q6H PRN IV NAUSEA AND/OR VOMITING; Start 12/19 at 16:00 Acetaminophen (Tylenol Tab) 650 mg Q6H PRN PO PAIN LEVEL 1-3 OR FEVER Last administered on 12/21/16 00:21; Admin Dose 650 MG; Start 12/19/16 at 16:00 Acetaminophen/ Hydrocodone Bitart ([place] (5/325)) 1 tab Q6H PRN PO MODERATE PAIN LEVEL 4-6; Start 12/19/16 at 16:00 Morphine Sulfate (morphine) 2 mg Q4H PRN IV SEVERE PAIN LEVEL 7-10 Last administered on 12/21/16 06:41; Admin Dose 2 MG; Start 12/19/16 at 16:00 Docusate Sodium (Colace) 100 mg Q12H PRN PO CONSTIPATION; Start 12/19/16 at 16: 00 Bisacodyl (Dulcolax Supp) 10 mg DAILY PRN [place] CONSTIPATION; Start 12/19/16 at 16: 00 Famotidine (Pepcid) 20 mg Q12 PO Last administered on 12/21/16 10:01; Admin Dose 20 MG; Start 12/19/16 at 21:00 Losartan Potassium (Cozaar) 50 mg DAILY PO Last administered on 12/21/16 10:01 ; Admin Dose 50 MG; Start 12/20/16 at 09:00 Morphine Sulfate (Ms Contin (Er)) 60 mg Q12 PO Last administered on 12/21/16 10:02; Admin Dose 60 MG; Start 12/19/16 at 21:00 Tamsulosin HCl (Flomax) 0.4 mg HS PO Last administered on 12/20/16 21:10; Admin Dose 0.4 MG; Start 12/19/16 at 21:00 Filgrastim (Neupogen) 300 mcg DAILY@17 SC Last administered on 12/20/16 19:20; Admin Dose 300 MCG; Start 12/20/16 at 17:00 VERONICA GRAVES MD Dec 21, 2016 13:58
[2016-12-21] MEDS: FILGRASTIM 300 MCG INJ SC SCH (17:32)
[2016-12-21] MEDS: TAMSULOSIN (SR) 0.4 MG CAP PO SCH (20:32)
[2016-12-22 07:52] VITALS: BP 124/78; RESP 18
[2016-12-22 08:48] LABS: ADD SCAN DIFF NO
[2016-12-22 08:53] LABS: BASOPHILS % 0.6 % (0.0-2.0); EOSINOPHILS # 0.1 10^3/ul (0.0-0.5); EOSINOPHILS % 1.7 % (0.0-7.0); HEMATOCRIT 37.1 % (42.0-52.0); HEMOGLOBIN 12.2 g/dl (14.0-18.0); LYMPHOCYTES % 25.6 % (15.0-51.0); MEAN CORPUSCULAR HEMOGLOBIN 27.8 pg (29.0-33.0); MEAN CORPUSCULAR HGB CONC 32.9 g/dl (32.0-37.0); MEAN CORPUSCULAR VOLUME 84.4 fl (82.0-101.0); MEAN PLATELET VOLUME 8.4 fl (7.4-10.4); MONOCYTE # 0.5 10^3/ul (0.3-0.9); NEUTROPHIL # 2.4 10^3/ul (1.6-7.5); NEUTROPHILS % 59.1 % (39.0-77.0); PLATELET COUNT 120 10^3/UL (140-440); RED BLOOD COUNT 4.39 10^6/ul (4.70-6.10); RED CELL DISTRIBUTION WIDTH 21.9 % (11.5-14.5); WHITE BLOOD COUNT 4.1 10^3/ul (4.8-10.8)
[2016-12-22 09:07] LABS: ALBUMIN 2.8 g/dl (3.3-4.9)
[2016-12-22 09:09] LABS: BILIRUBIN,INDIRECT 1.8 mg/dl (0-1.1); BILIRUBIN,TOTAL 1.8 mg/dl (0.2-1.3); CREATININE 0.58 mg/dl (0.61-1.24)
[2016-12-22 09:10] LABS: ALBUMIN/GLOBULIN RATIO 1.07; CALCIUM 8.4 mg/dl (8.4-10.2); TOTAL PROTEIN 5.4 g/dl (6.1-8.1)
[2016-12-22] MEDS: morphine (ER) 30 MG TAB PO SCH ×2 (09:23→20:34)
[2016-12-22] MEDS: FAMOTIDINE 20 MG TAB PO SCH ×2 (09:23→20:35)
[2016-12-22] MEDS: LOSARTAN 50 MG TAB PO SCH (09:23)
--- NOTE | 2016-12-22 09:46 | CONS ---
Date/Time of Note Date/Time of Note DATE: 12/22/16 TIME: 09:42 Assessment/Plan Assessment/Plan Chief Complaint/Hosp Course MALIGNANT Ascites secondary to CRC COAGULOPATHY POST paracentesis x 1 status post fresh frozen plasma and albumin infusion. WILL REPEAT PARACENTESIS D/W DR CHAMBERS colon cancer with metastasis to the liver. CHEMO ON HOLD ANEMIA POST PRBC Essential hypertension. Continue amlodipine, atenolol, losartan, and Lasi Benign prostatic hypertrophy. Continue Flomax. Lower extremity edema. This is likely secondary to liver disease, neoplasm of the liver, and hypoalbuminemia. The patient has been placed on albumin. Also, will continue Lasix. For deep venous thrombosis prophylaxis, the patient will be on Coumadin post dc For gastrointestinal prophylaxis, on Pepcid. Problems: Consultation Date/Type/Reason Admit Date/Time Dec 19, 2016 at 16:46 Initial Consult Date 12/19/16 [facility] Referring Provider: DELLA WALTERS 24 HR Interval Summary Free Text/Dictation ALL NOTED D/W DR CHAMBERS AND FAMILY WILL NEED REPEATED PARACENTESIS Exam/Review of Systems Vital Signs Vitals Vital Signs Date Time Temp Pulse Resp B/P Pulse Ox O2 Delivery O2 Flow Rate FiO2 12/22/16 07:52 98.1 85 18 124/78 98 12/21/16 17:34 Room Air Intake and Output 12/21/16 12/21/16 12/22/16 15:00 23:00 07:00 Intake Total 200 ml 780 ml 400 ml Output Total 750 ml Balance 200 ml 780 ml -350 ml Exam HEENT: normal RESPIRATORY: Effort is normal. Decreased breath sounds bilateral lower lung pruett. CARDIOVASCULAR: Normal S1, S2. Regular rhythm and rate. Positive 2 edema bilateral lower extremities. GASTROINTESTINAL: Abdomen contour with moderate ascites. Bowel sounds are distant secondary to ascites. MUSCULOSKELETAL: Positive edema bilateral lower extremities. Full range of motion. NEUROLOGIC: He is awake, alert, oriented. Results Result Diagram: 12/22/16 0820 12/22/16 0820 Results 24 hrs Laboratory Tests Test 12/22/16 08:20 Alanine Aminotransferase (ALT/SGPT) 31 Albumin 2.8 L Albumin/Globulin Ratio 1.07 Alkaline Phosphatase 206 H Anion Gap 15 Aspartate Amino Transf (AST/SGOT) 79 H Basophils # 0.0 Basophils % 0.6 Blood Morphology Comment Blood Urea Nitrogen 5 L Calcium Level 8.4 Carbon Dioxide Level 26 Chloride Level 100 Creatinine 0.58 L Direct Bilirubin 0.00 Eosinophils # 0.1 Eosinophils % 1.7 Globulin 2.60 Glucose Level 84 Hematocrit 37.1 #L Hemoglobin 12.2 #L Indirect Bilirubin 1.8 H Lymphocytes # 1.0 Lymphocytes % 25.6 Mean Corpuscular Hemoglobin 27.8 L Mean Corpuscular Hemoglobin Concent 32.9 Mean Corpuscular Volume 84.4 Mean Platelet Volume 8.4 Monocytes # 0.5 Monocytes % 13.0 H Neutrophils # 2.4 Neutrophils % 59.1 Nucleated Red Blood Cells # 0.0 Nucleated Red Blood Cells % 0.0 Platelet Count 120 #L Potassium Level 3.0 L Red Blood Count 4.39 #L Red Cell Distribution Width 21.9 H Sodium Level 138 Total Bilirubin 1.8 H Total Protein 5.4 L White Blood Count 4.1 #L Medications Medications Current Medications Ondansetron HCl (Zofran Inj) 4 mg Q6H PRN IV NAUSEA AND/OR VOMITING; Start 12/19 at 16:00 Acetaminophen (Tylenol Tab) 650 mg Q6H PRN PO PAIN LEVEL 1-3 OR FEVER Last administered on 12/21/16 00:21; Admin Dose 650 MG; Start 12/19/16 at 16:00 Acetaminophen/ Hydrocodone Bitart ([place] (5/325)) 1 tab Q6H PRN PO MODERATE PAIN LEVEL 4-6; Start 12/19/16 at 16:00 Morphine Sulfate (morphine) 2 mg Q4H PRN IV SEVERE PAIN LEVEL 7-10 Last administered on 12/21/16 06:41; Admin Dose 2 MG; Start 12/19/16 at 16:00 Docusate Sodium (Colace) 100 mg Q12H PRN PO CONSTIPATION; Start 12/19/16 at 16: 00 Bisacodyl (Dulcolax Supp) 10 mg DAILY PRN [place] CONSTIPATION; Start 12/19/16 at 16: 00 Famotidine (Pepcid) 20 mg Q12 PO Last administered on 12/21/16 20:32; Admin Dose 20 MG; Start 12/19/16 at 21:00 Losartan Potassium (Cozaar) 50 mg DAILY PO Last administered on 12/21/16 10:01 ; Admin Dose 50 MG; Start 12/20/16 at 09:00 Morphine Sulfate (Ms Contin (Er)) 60 mg Q12 PO Last administered on 12/21/16 20:32; Admin Dose 60 MG; Start 12/19/16 at 21:00 Tamsulosin HCl (Flomax) 0.4 mg HS PO Last administered on 12/21/16 20:32; Admin Dose 0.4 MG; Start 12/19/16 at 21:00 Filgrastim (Neupogen) 300 mcg DAILY@17 SC Last administered on 12/21/16 17:32 ; Admin Dose 300 MCG; Start 12/20/16 at 17:00 VERONICA GRAVES MD Dec 22, 2016 09:46
--- NOTE | 2016-12-22 10:32 | PN ---
Date/Time of Note Date/Time of Note DATE: 12/22/16 TIME: 10:31 Assessment/Plan VTE Prophylaxis VTE Prophylaxis Intervention: other (coumadin ) Lines/Catheters IV [facility] Type [facility]from [facility] Saline Lock Urinary Cath still in place: No Assessment/Plan Assessment/Plan 1. Ascites secondary to metastasis s/p paracentesis x 1 12/21/16 2. History of colon cancer with metastasis to the liver. followed by Dr. Perez as outpatient. 3. Essential hypertension. Continue amlodipine, atenolol, losartan, and Lasix. 4. Benign prostatic hypertrophy. Continue Flomax. 5. Lower extremity edema. This is likely secondary to liver disease, neoplasm of the liver, and hypoalbuminemia. The patient has been placed on albumin. Also, will continue Lasix. 6. For deep venous thrombosis prophylaxis, the patient is on Coumadin. 7. For gastrointestinal prophylaxis, on Pepcid. 8. Anemia - s/p 2 units PRBC during this admission so far lactulose for constipation Plan for paracentesis today Total amount of time was spent for follow up evaluation and management plan is > 45 minutes. Subjective 24 Hr Interval Summary Free Text/Dictation s/p paracentesis 5 liter removed, Afebrile,c/o constipation, BP stable Exam/Review of Systems Vital Signs Vitals Vital Signs Date Time Temp Pulse Resp B/P Pulse Ox O2 Delivery O2 Flow Rate FiO2 12/22/16 07:52 98.1 85 18 124/78 98 12/21/16 17:34 Room Air Intake and Output 12/21/16 12/21/16 12/22/16 15:00 23:00 07:00 Intake Total 200 ml 780 ml 400 ml Output Total 750 ml Balance 200 ml 780 ml -350 ml Exam HEENT: normal RESPIRATORY: Effort is normal. Decreased breath sounds bilateral lower lung pruett. CARDIOVASCULAR: Normal S1, S2. Regular rhythm and rate. Positive 2 edema bilateral lower extremities. GASTROINTESTINAL: Abdomen contour with severe ascites. Bowel sounds are distant secondary to ascites. MUSCULOSKELETAL: Positive edema bilateral lower extremities. Full range of motion. NEUROLOGIC: He is awake, alert, oriented. Results Result Diagram: 12/22/16 0820 12/22/16 0820 Results 24 hrs Laboratory Tests Test 12/22/16 08:20 Alanine Aminotransferase (ALT/SGPT) 31 Albumin 2.8 L Albumin/Globulin Ratio 1.07 Alkaline Phosphatase 206 H Anion Gap 15 Aspartate Amino Transf (AST/SGOT) 79 H Basophils # 0.0 Basophils % 0.6 Blood Morphology Comment Blood Urea Nitrogen 5 L Calcium Level 8.4 Carbon Dioxide Level 26 Chloride Level 100 Creatinine 0.58 L Direct Bilirubin 0.00 Eosinophils # 0.1 Eosinophils % 1.7 Globulin 2.60 Glucose Level 84 Hematocrit 37.1 #L Hemoglobin 12.2 #L Indirect Bilirubin 1.8 H Lymphocytes # 1.0 Lymphocytes % 25.6 Mean Corpuscular Hemoglobin 27.8 L Mean Corpuscular Hemoglobin Concent 32.9 Mean Corpuscular Volume 84.4 Mean Platelet Volume 8.4 Monocytes # 0.5 Monocytes % 13.0 H Neutrophils # 2.4 Neutrophils % 59.1 Nucleated Red Blood Cells # 0.0 Nucleated Red Blood Cells % 0.0 Platelet Count 120 #L Potassium Level 3.0 L Red Blood Count 4.39 #L Red Cell Distribution Width 21.9 H Sodium Level 138 Total Bilirubin 1.8 H Total Protein 5.4 L White Blood Count 4.1 #L Medications Medications Current Medications Ondansetron HCl (Zofran Inj) 4 mg Q6H PRN IV NAUSEA AND/OR VOMITING; Start 12/19 at 16:00 Acetaminophen (Tylenol Tab) 650 mg Q6H PRN PO PAIN LEVEL 1-3 OR FEVER Last administered on 12/21/16 00:21; Admin Dose 650 MG; Start 12/19/16 at 16:00 Acetaminophen/ Hydrocodone Bitart ([employer] (5/325)) 1 tab Q6H PRN PO MODERATE PAIN LEVEL 4-6; Start 12/19/16 at 16:00 Morphine Sulfate (morphine) 2 mg Q4H PRN IV SEVERE PAIN LEVEL 7-10 Last administered on 12/21/16 06:41; Admin Dose 2 MG; Start 12/19/16 at 16:00 Docusate Sodium (Colace) 100 mg Q12H PRN PO CONSTIPATION; Start 12/19/16 at 16: 00 Bisacodyl (Dulcolax Supp) 10 mg DAILY PRN [place] CONSTIPATION; Start 12/19/16 at 16: 00 Famotidine (Pepcid) 20 mg Q12 PO Last administered on 12/22/16 09:23; Admin Dose 20 MG; Start 12/19/16 at 21:00 Losartan Potassium (Cozaar) 50 mg DAILY PO Last administered on 12/22/16 09:23 ; Admin Dose 50 MG; Start 12/20/16 at 09:00 Morphine Sulfate (Ms Contin (Er)) 60 mg Q12 PO Last administered on 12/22/16 09:23; Admin Dose 60 MG; Start 12/19/16 at 21:00 Tamsulosin HCl (Flomax) 0.4 mg HS PO Last administered on 12/21/16 20:32; Admin Dose 0.4 MG; Start 12/19/16 at 21:00 Filgrastim (Neupogen) 300 mcg DAILY@17 SC Last administered on 12/21/16 17:32 ; Admin Dose 300 MCG; Start 12/20/16 at 17:00 MONAE CHAMBERS MD Dec 22, 2016 10:32
[2016-12-22] MEDS ORDERED: POTASSIUM CHLORIDE 20 MEQ in SOD CHLORIDE 0.9% 100 ML IVPB ONE (12:00)
[2016-12-22] MEDS: LACTULOSE 30ML CUP PO PRN (12:22)
[2016-12-22] MEDS ORDERED: LIDOCAINE 1% (MPF) 5 ML VIAL ONE (16:26)
--- NOTE | 2016-12-22 16:31 | RADRPT ---
PROCEDURE: Ultrasound guided paracentesis CLINICAL INDICATION: Ascites TECHNIQUE: The risks benefits and alternatives of the procedure were explained to the patient. In formed written consent was obtained. A time out was performed. The patient understood the risks be nefits and alternatives and wished to proceed with the procedure. The overlying skin of the right l ower quadrant of the abdomen was prepped and draped in the usual sterile fashion. Approximately 10 c c of Xylocaine was injected locally for pain control. Utilizing ultrasound guidance, a skinny 5-[facility] catheter was placed into the peritoneal cavity without difficulty. The patient tolerated the procedure well without complication. Approximately 3400 cc of thin cassandra fluid was obtained. T he fluid was not sent to the lab for further analysis. COMPARISON: 12/21/2016 FINDINGS: Initial ultrasound demonstrated a large amount of simple appearing ascites. Successful ultrasound-g uided paracentesis with a total of 3400 cc of thin yellow fluid aspirated. IMPRESSION: Successful ultrasound-guided paracentesis. RPTAT: QQ .Joe Vargas MD, MD Date Time Electronically viewed and signed by .Joe Vargas MD, on 12/22/2016 16:31 .A/
[2016-12-22] MEDS: morphine 2 MG INJ IV PRN (16:49)
[2016-12-22] MEDS: FILGRASTIM 300 MCG INJ SC SCH (16:49)
[2016-12-22 16:52] VITALS: BP 122/81; PULSE 84; RESP 18
[2016-12-22 19:45] VITALS: BP 117/59; PULSE 82; RESP 19
[2016-12-22] MEDS: TAMSULOSIN (SR) 0.4 MG CAP PO SCH (20:34)
[2016-12-23] MEDS: morphine 2 MG INJ IV PRN ×3 (07:54→20:45)
[2016-12-23] MEDS: DOCUSATE SODIUM 100 MG CAP PO PRN (07:54)
[2016-12-23] MEDS: LACTULOSE 30ML CUP PO PRN (08:08)
[2016-12-23] MEDS: LOSARTAN 50 MG TAB PO SCH (08:09)
[2016-12-23] MEDS: HYDROCODONE/APAP (5/325) TAB PO PRN ×2 (08:09→18:01)
[2016-12-23] MEDS: FAMOTIDINE 20 MG TAB PO SCH ×2 (08:09→21:25)
[2016-12-23] MEDS: morphine (ER) 30 MG TAB PO SCH ×2 (08:09→21:26)
[2016-12-23 08:10] VITALS: BP 126/79; RESP 14
--- NOTE | 2016-12-23 11:08 | PN ---
Date/Time of Note Date/Time of Note DATE: 12/23/16 TIME: 11:06 Assessment/Plan VTE Prophylaxis VTE Prophylaxis Intervention: other (coumadin ) Lines/Catheters IV [facility]ter Type [facility]from [facility] Urinary Cath still in place: No Assessment/Plan Assessment/Plan 1. Ascites secondary to metastasis s/p paracentesis x 2 2. History of colon cancer with metastasis to the liver. followed by Dr. Perez as outpatient. 3. Essential hypertension. Continue amlodipine, atenolol, losartan, and Lasix. 4. Benign prostatic hypertrophy. Continue Flomax. 5. Lower extremity edema. This is likely secondary to liver disease, neoplasm of the liver, and hypoalbuminemia. The patient has been placed on albumin. Also, will continue Lasix. 6. For deep venous thrombosis prophylaxis, the patient is on Coumadin. 7. For gastrointestinal prophylaxis, on Pepcid. 8. Anemia - s/p 2 units PRBC during this admission so far lactulose for constipation s/p paracentesis yesterday, no acute events, BP stable Total amount of time was spent for follow up evaluation and management plan is > 45 minutes. Subjective 24 Hr Interval Summary Free Text/Dictation pt had a paracentesis done 3.4 Liter removed,BP stable , on coumadin, H & O plan as per Exam/Review of Systems Vital Signs Vitals Vital Signs Date Time Temp Pulse Resp B/P Pulse Ox O2 Delivery O2 Flow Rate FiO2 12/23/16 08:10 98.5 89 14 126/79 97 12/22/16 19:45 Room Air Intake and Output 12/22/16 12/22/16 12/23/16 15:00 23:00 07:00 Intake Total 110 ml 650 ml 750 ml Output Total 800 ml Balance 110 ml 650 ml -50 ml Exam HEENT: normal RESPIRATORY: Effort is normal. Decreased breath sounds bilateral lower lung pruett. CARDIOVASCULAR: Normal S1, S2. Regular rhythm and rate. Positive 2 edema bilateral lower extremities. GASTROINTESTINAL: Abdomen contour with severe ascites. Bowel sounds are distant secondary to ascites. MUSCULOSKELETAL: Positive edema bilateral lower extremities. Full range of motion. NEUROLOGIC: He is awake, alert, oriented. Results Result Diagram: 12/22/1681912/22/16819 Medications Medications Current Medications Ondansetron HCl (Zofran Inj) 4 mg Q6H PRN IV NAUSEA AND/OR VOMITING; Start 12/19 at 16:00 Acetaminophen (Tylenol Tab) 650 mg Q6H PRN PO PAIN LEVEL 1-3 OR FEVER Last administered on 12/21/16 00:21; Admin Dose 650 MG; Start 12/19/16 at 16:00 Acetaminophen/ Hydrocodone Bitart ([place] (5/325)) 1 tab Q6H PRN PO MODERATE PAIN LEVEL 4-6 Last administered on 12/23/16 08:09; Admin Dose 1 TAB; Start 12/19/16 at 16:00 Morphine Sulfate (morphine) 2 mg Q4H PRN IV SEVERE PAIN LEVEL 7-10 Last administered on 12/23/16 07:54; Admin Dose 2 MG; Start 12/19/16 at 16:00 Docusate Sodium (Colace) 100 mg Q12H PRN PO CONSTIPATION Last administered on 07:54; Admin Dose 100 MG; Start 12/19/16 at 16:00 Bisacodyl (Dulcolax Supp) 10 mg DAILY PRN [place] CONSTIPATION; Start 12/19/16 at 16: 00 Famotidine (Pepcid) 20 mg Q12 PO Last administered on 12/23/16 08:09; Admin Dose 20 MG; Start 12/19/16 at 21:00 Losartan Potassium (Cozaar) 50 mg DAILY PO Last administered on 12/23/16 08:09 ; Admin Dose 50 MG; Start 12/20/16 at 09:00 Morphine Sulfate (Ms Contin (Er)) 60 mg Q12 PO Last administered on 12/23/16 08:09; Admin Dose 60 MG; Start 12/19/16 at 21:00 Tamsulosin HCl (Flomax) 0.4 mg HS PO Last administered on 12/22/16 20:34; Admin Dose 0.4 MG; Start 12/19/16 at 21:00 Filgrastim 300 mcg 300 mcg DAILY@17 SC Last administered on 12/22/16 16:49; Admin Dose 300 MCG; Start 12/20/16 at 17:00 Potassium Chloride/Sodium Chloride (KCl/NS) 110 ml @ 55 mls/hr ONCE ONCE IVPB Last administered on 12/22/16 12:22; Admin Dose 55 MLS/HR; Start 12/22/16 at 12:00; Stop 12/22/16 at 13:59 Lactulose (Enulose) 20 gm Q6H PRN PO CONSTIPATION Last administered on 08:08; Admin Dose 20 GM; Start 12/22/16 at 10:30 MONAE CHAMBERS MD Dec 23, 2016 11:08
[2016-12-23] MEDS: FILGRASTIM 300 MCG INJ SC SCH (18:02)
--- NOTE | 2016-12-23 18:42 | CONS ---
Date/Time of Note Date/Time of Note DATE: 12/23/16 TIME: 18:42 Assessment/Plan Assessment/Plan Chief Complaint/Hosp Course MALIGNANT Ascites secondary to CRC COAGULOPATHY POST paracentesis x 1 status post fresh frozen plasma and albumin infusion. WILL REPEAT PARACENTESIS D/W DR CHAMBERS colon cancer with metastasis to the liver. CHEMO ON HOLD ANEMIA POST PRBC Essential hypertension. Continue amlodipine, atenolol, losartan, and Lasi Benign prostatic hypertrophy. Continue Flomax. Lower extremity edema. This is likely secondary to liver disease, neoplasm of the liver, and hypoalbuminemia. The patient has been placed on albumin. Also, will continue Lasix. For deep venous thrombosis prophylaxis, the patient will be on Coumadin post dc For gastrointestinal prophylaxis, on Pepcid. Problems: Consultation Date/Type/Reason Admit Date/Time Dec 19, 2016 at 16:46 Initial Consult Date 12/19/16 [facility] Provider: DELLA WALTERS Exam/Review of Systems Vital Signs Vitals Vital Signs Date Time Temp Pulse Resp B/P Pulse Ox O2 Delivery O2 Flow Rate FiO2 12/23/16 08:10 98.5 89 14 126/79 97 12/22/16 19:45 Room Air Intake and Output 12/22/16 12/22/16 12/23/16 15:00 23:00 07:00 Intake Total 110 ml 650 ml 750 ml Output Total 800 ml Balance 110 ml 650 ml -50 ml Results Result Diagram: 12/22/16 0820 12/22/16 0820 Medications Medications Current Medications Ondansetron HCl (Zofran Inj) 4 mg Q6H PRN IV NAUSEA AND/OR VOMITING; Start 12/19 at 16:00 Acetaminophen (Tylenol Tab) 650 mg Q6H PRN PO PAIN LEVEL 1-3 OR FEVER Last administered on 12/21/16 00:21; Admin Dose 650 MG; Start 12/19/16 at 16:00 Acetaminophen/ Hydrocodone Bitart ([place] (5/325)) 1 tab Q6H PRN PO MODERATE PAIN LEVEL 4-6 Last administered on 12/23/16 18:01; Admin Dose 1 TAB; Start 12/19/16 at 16:00 Morphine Sulfate (morphine) 2 mg Q4H PRN IV SEVERE PAIN LEVEL 7-10 Last administered on 12/23/16 16:41; Admin Dose 2 MG; Start 12/19/16 at 16:00 Docusate Sodium (Colace) 100 mg Q12H PRN PO CONSTIPATION Last administered on 07:54; Admin Dose 100 MG; Start 12/19/16 at 16:00 Bisacodyl (Dulcolax Supp) 10 mg DAILY PRN [place] CONSTIPATION; Start 12/19/16 at 16: 00 Famotidine (Pepcid) 20 mg Q12 PO Last administered on 12/23/16 08:09; Admin Dose 20 MG; Start 12/19/16 at 21:00 Losartan Potassium (Cozaar) 50 mg DAILY PO Last administered on 12/23/16 08:09 ; Admin Dose 50 MG; Start 12/20/16 at 09:00 Morphine Sulfate (Ms Contin (Er)) 60 mg Q12 PO Last administered on 12/23/16 08:09; Admin Dose 60 MG; Start 12/19/16 at 21:00 Tamsulosin HCl (Flomax) 0.4 mg HS PO Last administered on 12/22/16 20:34; Admin Dose 0.4 MG; Start 12/19/16 at 21:00 Filgrastim (Neupogen) 300 mcg DAILY@17 SC Last administered on 12/23/16 18:02 ; Admin Dose 300 MCG; Start 12/20/16 at 17:00 Lactulose (Enulose) 20 gm Q6H PRN PO CONSTIPATION Last administered on 08:08; Admin Dose 20 GM; Start 12/22/16 at 10:30 VERONICA GRAVES MD Dec 23, 2016 18:42
[2016-12-23 20:07] VITALS: BP 114/74; RESP 17
[2016-12-23] MEDS: TAMSULOSIN (SR) 0.4 MG CAP PO SCH (21:26)
[2016-12-23] MEDS ORDERED: LORAZEPAM 2 MG INJ IV ONE (22:00)
[2016-12-23] MEDS: ACETAMINOPHEN 325 MG TAB PO PRN (22:03)
[2016-12-24] VITALS: RESP 17
[2016-12-24 04:10] VITALS: RESP 16
[2016-12-24 05:05] LABS: HEMATOCRIT 37.8 % (42.0-52.0); HEMOGLOBIN 12.6 g/dl (14.0-18.0); MEAN CORPUSCULAR HEMOGLOBIN 27.8 pg (29.0-33.0); MEAN CORPUSCULAR HGB CONC 33.3 g/dl (32.0-37.0); MEAN CORPUSCULAR VOLUME 83.6 fl (82.0-101.0); PLATELET COUNT 143 10^3/UL (140-440); RED BLOOD COUNT 4.51 10^6/ul (4.70-6.10); RED CELL DISTRIBUTION WIDTH 22.3 % (11.5-14.5); UNCORRECTED WBC 4.9 10^3/ul (4.8-10.8); WHITE BLOOD COUNT 4.9 10^3/ul (4.8-10.8)
[2016-12-24 05:10] LABS: INR 1.44; PROTIME 17.6 Sec (12.2-14.2); PT RATIO 1.4
[2016-12-24 05:11] LABS: PARTIAL THROMBOPLASTIN TIME 35.7 Sec (25.0-35.0)
[2016-12-24 05:23] LABS: CREATININE 0.68 mg/dl (0.61-1.24)
[2016-12-24 05:24] LABS: CALCIUM 8.1 mg/dl (8.4-10.2)
[2016-12-24 05:47] LABS: CONDITION 1; LH ANALYZER COMMENTS 1; SUSPECT 1
[2016-12-24] MEDS ORDERED: POTASSIUM CHLORIDE (SR) 20 MEQ TAB PO ONE (06:30)
[2016-12-24] MEDS ORDERED: FUROSEMIDE 40 MG INJ IV ONE (06:30)
[2016-12-24] MEDS: HYDROCODONE/APAP (5/325) TAB PO PRN ×2 (06:30→14:30)
[2016-12-24 08:00] VITALS: BP 99/73; PULSE 107
[2016-12-24 08:35] VITALS: BP 98/59; RESP 16
[2016-12-24] MEDS: LOSARTAN 50 MG TAB PO SCH (09:00)
[2016-12-24] MEDS: morphine (ER) 30 MG TAB PO SCH (09:04)
[2016-12-24] MEDS: FAMOTIDINE 20 MG TAB PO SCH (09:04)
[2016-12-24 10:00] VITALS: BP 88/60; PULSE 91
--- NOTE | 2016-12-24 11:20 | CONS ---
Date/Time of Note Date/Time of Note DATE: 12/24/16 TIME: 11:20 Assessment/Plan Assessment/Plan Chief Complaint/Hosp Course MALIGNANT Ascites secondary to CRC COAGULOPATHY POST paracentesis x 1 status post fresh frozen plasma and albumin infusion. post 2nd PARACENTESIS D/W DR CHAMBERS colon cancer with metastasis to the liver. CHEMO ON HOLD ANEMIA POST PRBC Essential hypertension. Continue amlodipine, atenolol, losartan, and Lasi Benign prostatic hypertrophy. Continue Flomax. Lower extremity edema. This is likely secondary to liver disease, neoplasm of the liver, and hypoalbuminemia. The patient has been placed on albumin. Also, will continue Lasix. For deep venous thrombosis prophylaxis, the patient will be on Coumadin post dc For gastrointestinal prophylaxis, on Pepcid. Problems: Consultation Date/Type/Reason Admit Date/Time Dec 19, 2016 at 16:46 Initial Consult Date 12/19/16 [facility] Referring Provider: DELLA WALTERS Exam/Review of Systems Vital Signs Vitals Vital Signs Date Time Temp Pulse Resp B/P Pulse Ox O2 Delivery O2 Flow Rate FiO2 12/24/16 10:00 91 88/60 12/24/16 08:35 97.0 16 96 12/24/16 04:10 Room Air Intake and Output 12/23/16 12/23/16 12/24/16 15:00 23:00 07:00 Intake Total 500 ml 400 ml Balance 500 ml 400 ml Results Result Diagram: 12/24/16 0420 12/24/16 0420 Results 24 hrs Laboratory Tests Test 12/24/16 04:20 Activated Partial Thromboplast Time 35.7 H Anion Gap 13 Basophils # Basophils % Blood Morphology Comment Blood Urea Nitrogen 7 Calcium Level 8.1 L Carbon Dioxide Level 25 Chloride Level 102 Creatinine 0.68 Eosinophils # Eosinophils % Glucose Level 82 Hematocrit 37.8 L Hemoglobin 12.6 L INR International Normalized Ratio 1.44 Lymphocytes # Lymphocytes % Magnesium Level 1.8 Mean Corpuscular Hemoglobin 27.8 L Mean Corpuscular Hemoglobin Concent 33.3 Mean Corpuscular Volume 83.6 Mean Platelet Volume 8.0 Monocytes # Neutrophils # Neutrophils % Nucleated Red Blood Cells # Nucleated Red Blood Cells % Platelet Count 143 Potassium Level 3.0 L Prothrombin Time 17.6 H Prothrombin Time Ratio 1.4 Red Blood Count 4.51 L Red Cell Distribution Width 22.3 H Sodium Level 137 White Blood Count 4.9 Medications Medications Current Medications Ondansetron HCl (Zofran Inj) 4 mg Q6H PRN IV NAUSEA AND/OR VOMITING; Start 12/19 at 16:00 Acetaminophen (Tylenol Tab) 650 mg Q6H PRN PO PAIN LEVEL 1-3 OR FEVER Last administered on 12/23/16 22:03; Admin Dose 650 MG; Start 12/19/16 at 16:00 Acetaminophen/ Hydrocodone Bitart ([place] (5/325)) 1 tab Q6H PRN PO MODERATE PAIN LEVEL 4-6 Last administered on 12/24/16 06:30; Admin Dose 1 TAB; Start 12/19/16 at 16:00 Morphine Sulfate (morphine) 2 mg Q4H PRN IV SEVERE PAIN LEVEL 7-10 Last administered on 12/23/16 20:45; Admin Dose 2 MG; Start 12/19/16 at 16:00 Docusate Sodium (Colace) 100 mg Q12H PRN PO CONSTIPATION Last administered on 07:54; Admin Dose 100 MG; Start 12/19/16 at 16:00 Bisacodyl (Dulcolax Supp) 10 mg DAILY PRN [place] CONSTIPATION; Start 12/19/16 at 16: 00 Famotidine (Pepcid) 20 mg Q12 PO Last administered on 12/24/16 09:04; Admin Dose 20 MG; Start 12/19/16 at 21:00 Losartan Potassium (Cozaar) 50 mg DAILY PO Last administered on 12/23/16 08:09 ; Admin Dose 50 MG; Start 12/20/16 at 09:00 Morphine Sulfate (Ms Contin (Er)) 60 mg Q12 PO Last administered on 12/24/16 09:04; Admin Dose 60 MG; Start 12/19/16 at 21:00 Tamsulosin HCl (Flomax) 0.4 mg HS PO Last administered on 12/23/16 21:26; Admin Dose 0.4 MG; Start 12/19/16 at 21:00 Filgrastim (Neupogen) 300 mcg DAILY@17 SC Last administered on 12/23/16 18:02 ; Admin Dose 300 MCG; Start 12/20/16 at 17:00 Lactulose (Enulose) 20 gm Q6H PRN PO CONSTIPATION Last administered on t 08:08; Admin Dose 20 GM; Start 12/22/16 at 10:30 VERONICA GRAVES MD Dec 24, 2016 11:20
[2016-12-24 12:51] LABS: EOSINOPHILS # 0.1 10^3/ul (0.0-0.5); LYMPHOCYTES # 1.2 10^3/ul (0.8-2.9)
[2016-12-24] MEDS ORDERED: ALBUMIN HUMAN 25% 100 ML IV SCH (13:30)
[2016-12-24] MEDS: DOCUSATE SODIUM 100 MG CAP PO PRN (14:30)
[2016-12-24] MEDS ORDERED: POTA10TA37 PO (15:13)
--- NOTE | 2016-12-24 15:15 | PDOCDIS ---
Discharge Instructions CONDITION Patient Condition: Good HOME CARE INSTRUCTIONS: Special Diet: REGULAR ACTIVITY: Activity Restrictions: No Restrictions FOLLOW UP/APPOINTMENTS Appointments F/U WITH YOUR PCP AND DR GRAVES IN 1-2 WEEKS LINDA DAHL Dec 24, 2016 15:15
[2016-12-24 17:13] VITALS: BP 110/73; PULSE 82; RESP 16
[2016-12-24] MEDS: FILGRASTIM 300 MCG INJ SC SCH (17:23)
[2016-12-24] MEDS: morphine 2 MG INJ IV PRN (17:23)
--- NOTE | 2016-12-25 11:54 | DS ---
DATE OF ADMISSION: 12/19/2016 DATE OF DISCHARGE: 12/24/2016 DISCHARGE DIAGNOSES: 1. Malignant ascites secondary to metastatic colon cancer with metastases to the liver. The patien t is status post paracentesis. We will discharge home and follow up with Dr. Perez. 2. Anemia, status post packed red blood cells. 3. Hypertension. Continue home medications. 4. Hypokalemia. Discharge with potassium. HOSPITAL COURSE: The patient is a 56-year-old male with an unfortunate history of metastatic colon cancer with mets to liver, ascites, frequent paracentesis, hypertension, BPH. The patient is follow ed up by Dr. Perez as an outpatient. The patient presents with abdominal distention and the soledad ent required paracentesis x2 during this hospitalization. The patient also has debility now and it not ambulating. The patient has hypokalemia and potassium was replaced. The patient was cleared fo r discharge by Dr. Perez with plans to follow up with her as an outpatient. Of note, the patilisa t was not ambulating during the hospitalization as his condition continued to deteriorate. The soledad ent's family was spoken to about hospice and they were given information to follow up with the hospi ce agency. The were told that a hospice agency could potentially meet with them for further recomme ndations and information. They did agree to meet with the hospice agency, which will be done at the patient's home in the next several days. On the day of discharge, the patient's vitals, labs, and p hysical exam were stable. Potassium was low on the day of discharge, but it was replaced. The soledad ent had no acute complaints and questions were answered. CONDITION ON DISCHARGE: Stable. DISPOSITION: To home. DISCHARGE MEDICATIONS: The patient is to continue usual home medications. The patient was given a prescription for potassium 10 mEq daily. FOLLOWUP: The patient is to follow up with the PCP in 1 to [address] Perez as instr ucted. The patient's family was also given information for hospice and were told that the hospice a gency could reach out to them in the next several days if they desire. They stated they will speak to several hospice agencies and they will follow up with recommendations from Dr. Perez Greater than 30 minutes was spent coordinating discharge of patient. Dictated By: LINDA DAHL MD BS/NTS Conf#: [id number] [facility]#: [id number]
== END 2016-12-24 19:00 | disposition home or self-care (01) | DRG 436 ==
LOC: E/R 08:34 → MS1 16:46
PROVIDERS: ADMIT Family Medicine; ATTEND Family Medicine
PROC: 0W9G3ZZ Drainage of Peritoneal Cavity, Percutaneous Approach (ICD-10-PCS; principal; 2016-12-21)
PROC: 30233N1 Transfusion of Nonautologous Red Blood Cells into Peripheral Vein, Percutaneous Approach (ICD-10-PCS; 2016-12-21)
PROC: 30233M1 Transfusion of Nonautologous Plasma Cryoprecipitate into Peripheral Vein, Percutaneous Approach (ICD-10-PCS; 2016-12-21)
PROC: 0W9G3ZZ Drainage of Peritoneal Cavity, Percutaneous Approach (ICD-10-PCS; 2016-12-22)
DX: C78.7 Secondary malignant neoplasm of liver and intrahepatic bile duct (principal); R18.0 Malignant ascites; C78.6 Secondary malignant neoplasm of retroperitoneum and peritoneum; Z85.038 Personal history of other malignant neoplasm of large intestine; D63.0 Anemia in neoplastic disease; I10 Essential (primary) hypertension; E87.6 Hypokalemia; N40.0 Benign prostatic hyperplasia without lower urinary tract symptoms
CPT/HCPCS: 36430; 71010; 80048; 80053; 81003; 82150; 83690; 83735; 84484; 85025; 85610; 85730; 86850; 86900; 86901; 86920; 87081; 87086; 93005; 96374; 96375; 96376; J1940; J1170; J2060; J2270; J2405; J3480; J7030; P9016; P9047; P9059